=== PATIENT | female | born 1950 | race Caucasian/White ===

== ENCOUNTER 2019-05-01 05:26 | Outpatient (CLI) | payer MEDICARE, OTHER, SELFPAY ==
[2019-05-01 05:56] LABS: Basophils % 0.5 %; Eosinophils # 0.1 10^3/uL (0.0-0.8); Eosinophils % 1.7 %; Hematocrit 29.5 % (37.0-47.0); Hemoglobin 8.8 g/dL (11.5-15.3); Lymphocytes # 0.6 10^3/uL (0.8-4.8); Lymphocytes % 13.2 %; Mean Corpuscular HGB Conc 29.8 g/dL (30.0-36.0); Mean Corpuscular Volume 77.2 fL (81-99); Mean Platelet Volume 11.4 fL (7.4-10.4); Monocytes # 0.4 10^3/uL (0.2-0.9); Monocytes % 10.6 %; Neutrophils # 3.1 10^3/uL (1.8-7.7); Neutrophils % 73.8 %; Nucleated Red Blood Cells % 0 %; Platelet Count 142 10^3/cmm (130-400); Red Blood Count 3.82 10^6/uL (4.1-5.3); Red Cell Distribution Width 18.3 % (12.1-15.1); White Blood Count 4.2 10^3/uL (4.0-10.0)
[2019-05-01 06:04] LABS: Estmated Average Glucose 151; Hemoglobin A1C 6.9 % (4.0-6.0)
[2019-05-01 06:09] LABS: Alanine Aminotransferase 56 U/L (0-33); Albumin Level 4.2 g/dL (3.5-5.2); Alkaline Phosphatase 140 IU/L (35-105); Anion Gap 19.3 (5-19); Aspartate Amino Transferase 59 U/L (0-32); Blood Urea Nitrogen 34 mg/dL (8-23); Calcium 10.3 mg/Dl (8.8-10.2); Carbon Dioxide 22 mmol/L (22-29); Chloride 101 mmol/L (98-107); Chol HDL Ratio 3.57 mg/dL (0.0-4.40); Cholesterol 214 mg/dL (0-200); Globulin 3.9 g/dL (1.3-4.6); Glomerular Filtration Rate 44.9 mL/min (90-130); Glucose 157 mg/dL (74-106); HDL Cholesterol 60 mg/dL (60-100); LDL Cholesterol Calculated 125 mg/dL (50-129); Potassium 4.3 mmol/L (3.5-5.1); Sodium 138 mmol/L (136-145); Total Bilirubin 0.4 mg/dL (0.15-1.2); Total Protein 8.1 g/dL (6.6-8.7); Triglycerides 145 mg/dL (0-150); VLDL Cholestrol Calculation 29 mg/dL (0-30)
[2019-05-01 06:17] LABS: Creatinine Urine, Random 104 mg/dL (28-217); Microalbum Creatinine Ratio Ur 38 mg/dL (0-20); Microalbumin Random Urine 4 ug/dL (0-20)
== END 2019-05-01 05:27 | disposition home or self-care (01) ==
LOC: LAB 05:30
PROVIDERS: Family Provider Family Medicine; Visit Provider Family Medicine
DX: E11.9 Type 2 diabetes mellitus without complications (principal)
CPT/HCPCS: 80053; 80061; 82044; 83036; 85025

== ENCOUNTER 2019-06-13 13:50 | Outpatient (CLI) | payer MEDICARE, OTHER, SELFPAY ==
--- NOTE | 2019-06-13 13:56 | XR_ITS ---
WS: [id number] DEXA (DUAL ENERGY X-RAY ABSORPTIOMETRY) Bone mineral density was performed using a [email or web address] machine. HISTORY: POST MENOPAUSAL COMPARISON: None available. Left forearm BMD: 0.884 g/cm2. T score: 0.1 Z score: 1.6 Total hip BMD: Left: 1.146 g/cm2. T score: 1.1 Z score: 1.9 Right: 1.154 g/cm2. T score: 1.2 Z score: 2.0 10 year probability of a major osteoporotic fracture is 10%. XR/XR DEXA axial skeleton* 42311 IMPRESSION: NORMAL BONE MINERAL DENSITY based upon the WHO classification for females.
== END 2019-06-13 13:51 | disposition home or self-care (01) ==
LOC: RADWPI 13:56
PROVIDERS: Family Provider Family Medicine; PCP Family Medicine; Visit Provider Family Medicine
DX: Z78.0 Asymptomatic menopausal state (principal)
CPT/HCPCS: 77080

== ENCOUNTER 2019-10-31 07:18 | Outpatient (CLI) | payer MEDICARE, OTHER, SELFPAY ==
--- NOTE | 2019-10-31 07:24 | US_ITS ---
WS: [id number] ULTRASOUND ABDOMEN LIMITED CLINICAL INFORMATION: NONALCOHOLIC STEATOHEPATITIS COMPARISON: None. FINDINGS: Hepatomegaly with cirrhotic liver Craniocaudal length: 19.9 cm. Echogenicity: Coarse fatty Surface nodularity: Present Mass (size and location): None. Bile ducts Intrahepatic ducts: Normal. Common bile duct diameter: 0.3 cm. Gallbladder Removed Pancreas Normal as visualized. Right kidney: Normal. Hydronephrosis: None. Size: 11.2 cm x 4.6 cm x 6.1 cm. Abdominal aorta and IVC Visualized portions are normal. Ascites: None. US/US abdomen limited 11130 IMPRESSION: 1. Hepatomegaly with diffuse fatty infiltration. Cirrhotic contour to the live r. Recommend correlation with liver function tests. 2. Gallbladder has been removed. 3. Normal common bile duct. 4. Right kidney not well visualized.
== END 2019-10-31 07:19 | disposition home or self-care (01) ==
PROVIDERS: PCP Nurse Practitioner Family; Visit Provider Internal Medicine Gastroenterology
DX: K75.81 Nonalcoholic steatohepatitis (NASH) (principal); K74.69 Other cirrhosis of liver
CPT/HCPCS: 76705

== ENCOUNTER 2020-03-20 10:58 | Outpatient (CLI) | payer MEDICARE, OTHER, SELFPAY ==
--- NOTE | 2020-03-20 | USCV_ITS ---
Caitlin Palacios Age: 69 Gender: F : 1950 Exam Date: 03/20/2020 11:39 Ordering Phys: Taylor Pena MD Technologist: Yadira Ward [place] [facility] [place]: [place] pain Rhythm: Sinus Patient History: Cardiac Medications: amlodipine, Medications in past 24 hours: amlidipine Contrast: Stress Results Protocol: Shmuel Total dose(mL): Exercise Duration (min:sec): 24:57 METS: Resting HR: 76 Resting BP: 180 / 90 Peak HR: 133 Peak BP: 200 / 82 Max Predicted HR: 153 87 % Max Predicted HR Target HR: 130 Double Product: 18853 Stress Summary: The hemodynamic response to stress was normal. BP Response: Normal Reason for Termination: The patients target heart rate was achieved Cardiac Symptoms: None ECG Analysis Resting ECG: Stress ECG: Arrhythmia: MEASUREMENTS (Male/Female) Normal Values FINDINGS 1. At the baseline, the patient's blood pressure was 180/90 mm Hg with a heart rate of 76 beats per minute. The chest examination revealed normal breath sounds with no rales or rhonchi. The CVS examination revealed normal heart sounds with no S3 or S4. 2. The Dobutamine was infused over 24 minutes and 57 seconds. The patient was given a total of 0.5 mg of IV Atropine for better heart rate response. The maximum heart rate obtained was 133 beats per minute. The patient attained 87 % of the maximum predicted heart rate. The blood pressure at the end of the infusion was 200/82 mmHg. Patient did not have any chest pain or any significant electrocardiogram changes with the Dobutamine infusion. The physical examination remained unchanged. No arrhythmias were seen on the monitor. 3. At the baseline, the patient's echocardiogram revealed normal cardiac chamber sizes with normal LV ejection fraction of 60 %. Segmental wall motion analysis revealed no abnormalities. There were no intracardiac masses. No significant pericardial effusion. Aortic root appears to be upper limits of normal size. 4. With the low and the peak Dobutamine infusion, there was good augmentation of all the segments with no Dobutamine-induced wall motion abnormalities. 5. During the recovery phase, the patient did not have any symptoms or any EKG changes. The blood pressure at the end of the recovery phase was 178/74 with a heart rate of 80 beats per minute. 6. The echocardiogram during the recovery phase also did not reveal any new changes. CONCLUSIONS 1. Normal electrocardiogram response to Dobutamine infusion. 2. Normal echocardiographic response to Dobutamine infusion. 3. No Dobutamine-induced chest pain or cardiac arrhythmia. 4. Clinical correlation is recommended. Talyor Pena MD Edited by: [employer] (Electronically Signed) Final Date: 25 March 2020 06:19 Amended: 25 March 2020 07:23 C
[2020-03-20 11:02] VITALS: BMI 31.6
--- NOTE | 2020-03-20 11:23 | ECG_ITS ---
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 Interpretive Statements NAME OF STUDY: DOBUTAMINE STRESS ECHOCARDIOGRAM INDICATION: Chest Pain PROCEDURE: At the baseline, the blood pressure was 180/90 mmHg with a heart rate of 76 bpm and oxygen saturation 97%. The electrocardiogram showed normal sinus rhythm, normal axis with nonspecific ST changes. Poor baseline with artifact. The dobutamine was infused over a period of 24 minutes 57 seconds to a maximum dose of 80 mcg/kg/min. The maximum heart rate obtained was 133 (86% of the maximum predicted heart rate). The blood pressure at that time was 156/61 mmHg and oxygen saturation 96%. The patient did not have any chest pain or any significant electrocardiogram changes with the dobutamine infusion. The physical examination remained unchanged. No arrhythmias were seen on the monitor. The study was terminated due to protocol completion and achievement of maximum heart rate. During the recovery phase, the patient did not have any specific symptoms. The blood pressure at the end of the recovery phase was 178/74 mmHg, oxygen saturation 96% with a heart rate of 80 beats per minute. Patient received atropine 0.1 mg IV push during the study. CONCLUSION: 1. Normal EKG response to dobutamine infusion. 2. Normal blood pressure and heart rate response. 3. Functional status could not be assessed due to pharmacological protocol. 4. Echocardiographic portion of the study pending; see separate report. Electronically Signed On 03-25-2020 16:58:43 CONSTRUCTION CARPENTERS HELPER by Taylor Pena M.D. [id number]
[2020-03-20] MEDS: atropine 0.1 mg/mL Syr 10 mL 0.5 MG IVP (12:50)
[2020-03-20] MEDS: DOBUTtamine 200 MG in sodium chloride 0.9% 34 ML 103.4 MG IV (12:51)
[2020-03-20 12:54] VITALS: BP 178/74; PULSE 80
== END 2020-03-20 10:59 | disposition home or self-care (01) ==
LOC: CDL 10:59
PROVIDERS: PCP Nurse Practitioner Family; Visit Provider Internal Medicine Cardiovascular Disease
DX: R07.89 Other chest pain (principal)
CPT/HCPCS: 93017; 93350; 93352; J0461; J1250; J7050

== ENCOUNTER 2020-05-07 06:31 | Outpatient (CLI) | payer MEDICARE, OTHER, SELFPAY ==
--- NOTE | 2020-05-07 | US_ITS ---
WS: [id number] RIGHT UPPER QUADRANT ULTRASOUND HISTORY: HCC SCREEN, CIRRHOSIS OF THE LIVER COMPARISON: 10/31/2019 Liver: 12.7 cm in length. Liver is normal size. Surface of the liver is irregular with a moderate coa rsened echotexture. No bile duct dilatation. No mass. Gallbladder: Status post cholecystectomy. CBD: 0.3 cm Pancreas: Normal size and echogenicity. Right kidney: 12.4 cm in length. Normal size kidney with mild diffuse cortical thinning. No obstructi on or mass. Aorta and IVC: Unremarkable abdominal aorta and IVC. No ascites. US/US abdomen limited 40138 IMPRESSION: 1. Moderately severe changes of cirrhosis. No bile duct dilatation or mass. 2. Prior cholecystectomy. 3. Mild thinning of the RIGHT renal cortex.
== END 2020-05-07 06:32 | disposition home or self-care (01) ==
LOC: RAD 06:34
PROVIDERS: PCP Nurse Practitioner Family; Visit Provider Internal Medicine Gastroenterology
DX: K74.69 Other cirrhosis of liver (principal); Z90.49 Acquired absence of other specified parts of digestive tract
CPT/HCPCS: 76705

== ENCOUNTER 2020-06-14 07:28 | Outpatient (CLI) | payer MEDICARE, OTHER, SELFPAY ==
--- NOTE | 2020-06-14 07:41 | US_ITS ---
WS: [id number] ULTRASOUND ABDOMEN LIMITED CLINICAL INFORMATION: THROMBOCYTOPENIC DISORDER/HX OF CIRRHOSIS COMPARISON: Ultrasound May 07, 2020 FINDINGS: Spleen Splenomegaly: Enlarged Spleen measures 12.9 x 6.2 CM. No hydronephrosis in the left kidney. Left kidney measures 12.6 x 2.7 x 4.5 cm. Renal cortical atrophy measuring 0.7 CM. US/US abdomen limited 19864 IMPRESSION: 1. Splenomegaly with accessory splenule. Spleen measures 13.0 cm [id number]. 2. No hydronephrosis in the left kidney. Renal cortical atrophy.
== END 2020-06-14 07:29 | disposition home or self-care (01) ==
LOC: RAD 07:33
PROVIDERS: PCP Nurse Practitioner Family; Visit Provider Nurse Practitioner Family
DX: D69.6 Thrombocytopenia, unspecified (principal); R16.1 Splenomegaly, not elsewhere classified
CPT/HCPCS: 76705

== ENCOUNTER 2021-08-27 06:00 | Outpatient (RCR) | payer MEDICARE, OTHER, SELFPAY | END 2021-09-16 23:59 | disposition home or self-care (01) | LOC: WPT 06:00 | PROVIDERS: PCP Nurse Practitioner Family; Referring Provider Nurse Practitioner Family; Visit Provider Nurse Practitioner Family | DX: M54.12 Radiculopathy, cervical region (principal) | CPT/HCPCS: 97110; 97140; 97161 ==

== ENCOUNTER 2021-09-17 06:00 | Outpatient (RCR) | payer MEDICARE, OTHER, SELFPAY | END 2021-10-16 23:59 | disposition home or self-care (01) | LOC: WPT 06:00 | PROVIDERS: PCP Nurse Practitioner Family; Referring Provider Nurse Practitioner Family; Visit Provider Nurse Practitioner Family | DX: M54.12 Radiculopathy, cervical region (principal) | CPT/HCPCS: 97110 ==

== ENCOUNTER → 2021-12-02 13:56 | Outpatient (BNVA) | payer MEDICARE, OTHER, SELFPAY | PROVIDERS: PCP Registered Nurse; Referring Provider Dermatology; Visit Provider Podiatrist Foot & Ankle Surgery | DX: M79.672 Pain in left foot (principal); M77.32 Calcaneal spur, left foot; R07.89 Other chest pain; I10 Essential (primary) hypertension; E11.9 Type 2 diabetes mellitus without complications; E78.5 Hyperlipidemia, unspecified; E03.9 Hypothyroidism, unspecified | CPT/HCPCS: 73630; 99203; 99204; 99214 ==

== ENCOUNTER → 2022-02-02 15:07 | Outpatient (BNVA) | payer MEDICARE, OTHER, SELFPAY | PROVIDERS: PCP Registered Nurse; Visit Provider Podiatrist Foot & Ankle Surgery | DX: M92.62 Juvenile osteochondrosis of tarsus, left ankle (principal); M76.72 Peroneal tendinitis, left leg | CPT/HCPCS: 99214 ==

== ENCOUNTER → 2022-05-20 13:27 | Outpatient (BNVA) | payer MEDICARE, OTHER, SELFPAY | PROVIDERS: PCP Nurse Practitioner Family; Visit Provider Internal Medicine Cardiovascular Disease | DX: M79.89 Other specified soft tissue disorders (principal); I10 Essential (primary) hypertension; E78.5 Hyperlipidemia, unspecified; E11.9 Type 2 diabetes mellitus without complications; Z79.4 Long term (current) use of insulin; E03.9 Hypothyroidism, unspecified; K74.60 Unspecified cirrhosis of liver; K27.9 Peptic ulcer, site unspecified, unspecified as acute or chronic, without hemorrhage or perforation; Z79.01 Long term (current) use of anticoagulants | CPT/HCPCS: 99214; Q3014 ==

== ENCOUNTER 2022-06-06 10:29 | Outpatient (CLI) | payer MEDICARE, OTHER, SELFPAY ==
[2022-06-06 10:42] LABS: Occult Blood Stool Negative (Negative)
== END 2022-06-06 10:30 | disposition home or self-care (01) ==
PROVIDERS: Internal Medicine Medical Oncology; PCP Nurse Practitioner Family; Visit Provider Orthopaedic Surgery Orthopaedic Surgery of the Spine
DX: D50.9 Iron deficiency anemia, unspecified (principal)
CPT/HCPCS: 82270

== ENCOUNTER 2022-06-12 09:30 | Oncology outpatient (recurring) (ONCR) | payer MEDICARE, OTHER, SELFPAY ==
[2022-06-08] VITALS (9 sets, daily range): BP systolic 125–144; BP diastolic 52–68; PULSE 50–78; RESP 16; TEMP 36.5–36.9; O2SAT 96–99
[2022-06-08 09:13] LABS: Basophils % 0.4 %; Eosinophils # 0.1 10^3/uL (0.0-0.8); Eosinophils % 1.8 %; Hematocrit 24.7 % (37.0-47.0); Hemoglobin 7.3 g/dL (11.5-15.3); Lymphocytes # 0.4 10^3/uL (0.8-4.8); Lymphocytes % 15.1 %; Mean Corpuscular HGB Conc 29.6 g/dL (30.0-36.0); Mean Corpuscular Hemoglobin 25.7 pg (28.0-34.0); Mean Platelet Volume 13.8 fL (7.4-10.4); Monocytes # 0.3 10^3/uL (0.2-0.9); Monocytes % 11.1 %; Neutrophils # 1.94 10^3/uL (1.8-7.7); Neutrophils % 71.6 %; Nucleated Red Blood Cells % 0 %; Platelet Count 91 10^3/cmm (130-400); Red Blood Count 2.84 10^6/uL (4.1-5.3); Red Cell Distribution Width 17.5 % (12.1-15.1); White Blood Count 2.7 10^3/uL (4.0-10.0)
[2022-06-08] MEDS: diphenhydrAMINE 25 mg Capsule PO (11:52)
[2022-06-08] MEDS: acetaminophen 325 mg Tablet 650 MG PO (11:52)
[2022-06-08] MEDS: sodium chloride 0.9% 250 mL Bag IV (11:53)
[2022-06-12] MEDS: sodium chloride 0.9% 250 ML 75 ML IV (09:41)
[2022-06-12] MEDS: ferric carboxy (IVPB) 750 MG in sodium chloride 0.9% (100 ml) 100 ML 345 MG IV (09:42)
[2022-06-12 10:31] VITALS: BP 119/72; PULSE 59; RESP 14; TEMP 36.2; O2SAT 98
== END 2022-06-16 23:59 | disposition home or self-care (01) ==
PROVIDERS: PCP Nurse Practitioner Family; Visit Provider Internal Medicine Medical Oncology
DX: D50.9 Iron deficiency anemia, unspecified (principal); Z79.899 Other long term (current) drug therapy
CPT/HCPCS: 36415; 36430; 85025; 86850; 86900; 86920; 96365; 99204; 99205; J1439; J7050; P9016

== ENCOUNTER 2022-06-19 08:57 | Oncology outpatient (recurring) (ONCR) | payer MEDICARE, OTHER, SELFPAY ==
[2022-06-19] MEDS: ferric carboxy (IVPB) 750 MG in sodium chloride 0.9% (100 ml) 100 ML 345 MG IV (09:27)
[2022-06-19] MEDS: sodium chloride 0.9% 250 ML 75 ML IV (09:27)
[2022-06-19 10:14] VITALS: BP 124/73; PULSE 55; RESP 16; TEMP 36.2; O2SAT 96
== END 2022-07-17 23:59 | disposition home or self-care (01) ==
LOC: ONCMED 08:57
PROVIDERS: PCP Nurse Practitioner Family; Visit Provider Internal Medicine Medical Oncology
DX: D50.9 Iron deficiency anemia, unspecified
CPT/HCPCS: 96365; 96416; J1439; J7050

== ENCOUNTER 2022-07-10 13:02 | Outpatient (CLI) | payer MEDICARE, OTHER, SELFPAY ==
--- NOTE | 2022-07-10 13:45 | USCV_ITS ---
Caitlin Palacios Age: 71 Gender: F : 1950 Exam Date: 07/10/2022 13:38 Ordering Phys: Taylor Pena MD ([email or web address]) Technologist: Exam Location: [facility] [place] Indication: chest pain BP: 124 / 72 HR: 62 Rhythm: Sinus Technical Quality: Adequate MEASUREMENTS (Male / Female) Normal Values 2D ECHO LV Diastolic Diameter PLAX 4.2 cm 4.2 - 5.9 / 3.9 - 5.3 cm LV Systolic Diameter PLAX 2.7 cm IVS Diastolic Thickness 1.1 cm 0.6 - 1.0 / 0.6 - 0.9 cm IVS Systolic Thickness 1.3 cm LVPW Diastolic Thickness 1.1 cm 0.6 - 1.0 / 0.6 - 0.9 cm LVPW Systolic Thickness 1.7 cm LVOT Diameter 2.1 cm LV Ejection Fraction 2D Teich 64.4 % LV Ejection Fraction MOD 2C 73.1 % LV Ejection Fraction 2C AL 72.4 % LA Diameter 3.7 cm M-MODE Aortic Annulus Diameter 3.0 cm LA Ao Ratio MM 1.4 MV E Point Septal Separation 1.0 cm DOPPLER AV Peak Velocity 186.0 cm/s LVOT Peak Velocity 111.0 cm/s AV Area Cont Eq vti 2.0 cm squared AV Area Cont Eq pk 2.0 cm squared MV Area PHT 5.0 cm squared Mitral E to A Ratio 0.9 MV E' Velocity 48.5 cm/s Mitral E to MV E' Ratio 8.3 Mitral E to LV E' Lateral Ratio 7.3 Mitral E to LV E' Septal Ratio 9.8 TR Peak Velocity 231.3 cm/s TR Peak Gradient 21.4 mmHg TV Peak E Velocity 85.0 cm/s Right Atrial Pressure 3.0 mmHg Pulmonary Artery Systolic Pressu 24.4 mmHg RV Acceleration Time 0.2 s FINDINGS Left Ventricle Left ventricle is normal in size. LV systolic function is normal with EF of 55-60%. No regional wall motion abnormalities are seen. Grade 1 diastolic dysfunction Right Ventricle Normal in size and function Right Atrium Normal in size Left Atrium Normal in size Mitral Valve Structurally normal mitral valve. Trace mitral regurgitation. Aortic Valve Structurally normal aortic valve. No significant stenosis or regurgitation. Tricuspid Valve Mild tricuspid regurgitation. Pulmonary artery systolic pressure is normal Pulmonic Valve Not well visualized Pericardium Normal Aorta Normal in size IVC Appears to be normal CONCLUSIONS LV systolic function is normal with EF of 55-60% Grade 1 diastolic dysfunction Trace mitral regurgitation Mild tricuspid regurgitation Compared to prior echocardiogram from 2016, no significant changes are seen Lavon Pradhan MD (Electronically Signed) Final Date: 23 July 2022 16:28 S
== END 2022-07-10 13:03 | disposition home or self-care (01) ==
LOC: RAD 13:12
PROVIDERS: PCP Nurse Practitioner Family; Visit Provider Internal Medicine Cardiovascular Disease
DX: R07.9 Chest pain, unspecified (principal); I08.1 Rheumatic disorders of both mitral and tricuspid valves
CPT/HCPCS: 93306

== ENCOUNTER → 2022-07-13 12:34 | Outpatient (BNVA) | payer MEDICARE, OTHER, SELFPAY | PROVIDERS: PCP Nurse Practitioner Family; Visit Provider Nurse Practitioner Family | DX: M79.89 Other specified soft tissue disorders (principal); I12.9 Hypertensive chronic kidney disease with stage 1 through stage 4 chronic kidney disease, or unspecified chronic kidney disease; E11.22 Type 2 diabetes mellitus with diabetic chronic kidney disease; N18.9 Chronic kidney disease, unspecified; Z79.4 Long term (current) use of insulin | CPT/HCPCS: 99214 ==

== ENCOUNTER 2022-07-22 12:48 | Oncology outpatient (recurring) (ONCR) | payer MEDICARE, OTHER, SELFPAY ==
[2022-07-22 13:49] LABS: Basophils % 0.6 %; Eosinophils # 0.1 10^3/uL (0.0-0.8); Eosinophils % 2.4 %; Hematocrit 34.4 % (37.0-47.0); Hemoglobin 11.2 g/dL (11.5-15.3); Lymphocytes # 0.5 10^3/uL (0.8-4.8); Lymphocytes % 15.5 %; Mean Corpuscular HGB Conc 32.6 g/dL (30.0-36.0); Mean Corpuscular Hemoglobin 30.5 pg (28.0-34.0); Mean Corpuscular Volume 93.7 fl (81-99); Monocytes # 0.3 10^3/uL (0.2-0.9); Neutrophils # 2.35 10^3/uL (1.8-7.7); Neutrophils % 71.2 %; Nucleated Red Blood Cells % 0 %; Platelet Count 73 10^3/cmm (130-400); Red Blood Count 3.67 10^6/uL (4.1-5.3); Red Cell Distribution Width 20.8 % (12.1-15.1); White Blood Count 3.3 10^3/uL (4.0-10.0)
[2022-07-22 13:55] LABS: Alanine Aminotransferase 65 U/L (0-33); Albumin Level 3.9 g/dL (3.5-5.2); Alkaline Phosphatase 168 U/L (35-105); Anion Gap 12.8 (5-19); Aspartate Amino Transferase 55 U/L (0-32); Blood Urea Nitrogen 35 mg/dL (8-23); Calcium 8.7 mg/dL (8.5-10.5); Carbon Dioxide 26 mmol/L (22-29); Chloride 105 mmol/L (98-107); Ferritin 308 ng/mL (15-150); Globulin 2.8 g/dL (1.3-4.6); Glomerular Filtration Rate 40.6 mL/min (90-130); Glucose 281 mg/dL (65-115); Iron 58 ug/dL (37-145); Osmolality Calculated 308 mOsm/kg (285-295); Percent Saturation 20.4 % (20-50); Potassium 3.8 mmol/L (3.5-5.1); Sodium 140 mmol/L (136-145); Total Bilirubin 0.6 mg/dL (0.15-1.2); Total Iron Binding Capacity 283 mcg/dl; Total Protein 6.7 g/dL (6.6-8.7); Unsaturated Iron Binding 225 ug/dL (112-347)
[2022-07-22 14:44] LABS: Mean Platelet Volume 11.3 fL (7.4-10.4); Slide Review Slide Review Perform
== END 2022-08-16 23:59 | disposition home or self-care (01) ==
PROVIDERS: Nurse Practitioner; PCP Nurse Practitioner Family; Visit Provider Internal Medicine Medical Oncology
DX: D50.9 Iron deficiency anemia, unspecified (principal); D61.818 Other pancytopenia; K74.60 Unspecified cirrhosis of liver; I81 Portal vein thrombosis; Z79.01 Long term (current) use of anticoagulants; Z79.899 Other long term (current) drug therapy; M79.7 Fibromyalgia; Z79.891 Long term (current) use of opiate analgesic
CPT/HCPCS: 36415; 80053; 82728; 83540; 83550; 85025; 99214

== ENCOUNTER 2022-09-10 15:00 | Oncology outpatient (recurring) (ONCR) | payer MEDICARE, OTHER, SELFPAY ==
[2022-08-24 11:56] LABS: Basophils % 0.6 %; Eosinophils # 0.1 10^3/uL (0.0-0.8); Eosinophils % 1.6 %; Hematocrit 33.3 % (37.0-47.0); Hemoglobin 10.5 g/dL (11.5-15.3); Lymphocytes # 0.5 10^3/uL (0.8-4.8); Lymphocytes % 16.5 %; Mean Corpuscular HGB Conc 31.5 g/dL (30.0-36.0); Mean Corpuscular Hemoglobin 29.8 pg (28.0-34.0); Mean Corpuscular Volume 94.6 fl (81-99); Monocytes # 0.3 10^3/uL (0.2-0.9); Monocytes % 10.2 %; Neutrophils # 2.23 10^3/uL (1.8-7.7); Neutrophils % 70.8 %; Nucleated Red Blood Cells % 0 %; Platelet Count 69 10^3/cmm (130-400); Red Blood Count 3.52 10^6/uL (4.1-5.3); Red Cell Distribution Width 16.2 % (12.1-15.1); White Blood Count 3.2 10^3/uL (4.0-10.0)
[2022-08-24 12:13] LABS: Alanine Aminotransferase 42 U/L (0-33); Albumin Level 3.7 g/dL (3.5-5.2); Alkaline Phosphatase 156 U/L (35-105); Anion Gap 16.4 (5-19); Aspartate Amino Transferase 47 U/L (0-32); Blood Urea Nitrogen 34 mg/dL (8-23); Calcium 8.7 mg/dL (8.5-10.5); Carbon Dioxide 25 mmol/L (22-29); Chloride 102 mmol/L (98-107); Ferritin 74 ng/mL (15-150); Glomerular Filtration Rate 34.3 mL/min (90-130); Glucose 168 mg/dL (65-115); Iron 45 ug/dL (37-145); Osmolality Calculated 301 mOsm/kg (285-295); Percent Saturation 15.6 % (20-50); Potassium 3.4 mmol/L (3.5-5.1); Sodium 140 mmol/L (136-145); Total Bilirubin 0.5 mg/dL (0.15-1.2); Total Iron Binding Capacity 288 mcg/dl; Total Protein 6.7 g/dL (6.6-8.7); Unsaturated Iron Binding 243 ug/dL (112-347)
[2022-09-01 13:30] VITALS: BP 97/55; PULSE 60; RESP 18; TEMP 36.4; O2SAT 97
[2022-09-01] MEDS: ferric carboxy (IVPB) 750 MG in sodium chloride 0.9% (100 ml) 100 ML 345 MG IV (13:33)
[2022-09-01 14:18] VITALS: BP 151/59; PULSE 61; RESP 18; TEMP 36.7; O2SAT 97
[2022-09-10 14:50] VITALS: BP 140/68; PULSE 55; RESP 16; TEMP 35.8; O2SAT 100
[2022-09-10] MEDS: ferric carboxy (IVPB) 750 MG in sodium chloride 0.9% (100 ml) 100 ML 345 MG IV (15:18)
== END 2022-09-16 23:59 | disposition home or self-care (01) ==
PROVIDERS: PCP Nurse Practitioner Family; Visit Provider Internal Medicine Medical Oncology
DX: D50.9 Iron deficiency anemia, unspecified
CPT/HCPCS: 36415; 80053; 82728; 83540; 83550; 85025; 96365; 99214; J1439

== ENCOUNTER 2022-11-23 11:08 | Oncology outpatient (recurring) (ONCR) | payer MEDICARE, OTHER, SELFPAY ==
[2022-11-23 11:19] VITALS: BP 131/68; PULSE 72; RESP 18; TEMP 36.6; O2SAT 93
[2022-11-23 11:40] LABS: Basophils % 0.4 %; Eosinophils # 0.1 10^3/uL (0.0-0.8); Eosinophils % 2.2 %; Hematocrit 34.6 % (37.0-47.0); Hemoglobin 11.5 g/dL (11.5-15.3); Lymphocytes # 0.4 10^3/uL (0.8-4.8); Lymphocytes % 14.3 %; Mean Corpuscular HGB Conc 33.2 g/dL (30.0-36.0); Mean Corpuscular Hemoglobin 31.9 pg (28.0-34.0); Mean Corpuscular Volume 95.8 fl (81-99); Mean Platelet Volume 13.2 fL (7.4-10.4); Monocytes # 0.3 10^3/uL (0.2-0.9); Neutrophils # 2.07 10^3/uL (1.8-7.7); Neutrophils % 74.1 %; Nucleated Red Blood Cells % 0 %; Platelet Count 75 10^3/cmm (130-400); Red Blood Count 3.61 10^6/uL (4.1-5.3); Red Cell Distribution Width 14.4 % (12.1-15.1); White Blood Count 2.8 10^3/uL (4.0-10.0)
[2022-11-23 12:10] LABS: Alanine Aminotransferase 47 U/L (0-33); Albumin Level 3.8 g/dL (3.5-5.2); Alkaline Phosphatase 177 U/L (35-105); Aspartate Amino Transferase 51 U/L (0-32); Blood Urea Nitrogen 37 mg/dL (8-23); Carbon Dioxide 23 mmol/L (22-29); Chloride 105 mmol/L (98-107); Ferritin 138 ng/mL (15-150); Globulin 3.1 g/dL (1.3-4.6); Glomerular Filtration Rate 37.2 mL/min (90-130); Glucose 294 mg/dL (65-115); Iron 60 ug/dL (37-145); Osmolality Calculated 312 mOsm/kg (285-295); Sodium 141 mmol/L (136-145); Total Bilirubin 0.5 mg/dL (0.15-1.2); Total Iron Binding Capacity 300 mcg/dl; Total Protein 6.9 g/dL (6.6-8.7); Unsaturated Iron Binding 240 ug/dL (112-347)
[2022-11-23 12:11] LABS: Anion Gap 16.9 (5-19); Potassium 3.9 mmol/L (3.5-5.1)
== END 2022-12-17 23:59 | disposition home or self-care (01) ==
PROVIDERS: PCP Nurse Practitioner Family; Visit Provider Internal Medicine Medical Oncology
DX: D61.818 Other pancytopenia (principal); D50.9 Iron deficiency anemia, unspecified; K74.60 Unspecified cirrhosis of liver; I81 Portal vein thrombosis; Z79.01 Long term (current) use of anticoagulants; Z79.891 Long term (current) use of opiate analgesic; Z79.899 Other long term (current) drug therapy
CPT/HCPCS: 80053; 82728; 83540; 83550; 85025; 99214

== ENCOUNTER → 2023-01-12 14:31 | Outpatient (BNVA) | payer MEDICARE, OTHER, SELFPAY | PROVIDERS: PCP Nurse Practitioner Family; Referring Provider Nurse Practitioner Family; Visit Provider Thoracic Surgery (Cardiothoracic Vascular Surgery) | DX: M79.89 Other specified soft tissue disorders (principal) | CPT/HCPCS: 99203 ==

== ENCOUNTER → 2023-01-18 10:43 | Outpatient (BNVA) | payer MEDICARE, OTHER, SELFPAY | PROVIDERS: PCP Nurse Practitioner Family; Visit Provider Internal Medicine Cardiovascular Disease | DX: M79.89 Other specified soft tissue disorders (principal); I12.9 Hypertensive chronic kidney disease with stage 1 through stage 4 chronic kidney disease, or unspecified chronic kidney disease; E11.22 Type 2 diabetes mellitus with diabetic chronic kidney disease; N18.9 Chronic kidney disease, unspecified; Z79.4 Long term (current) use of insulin; E78.5 Hyperlipidemia, unspecified; E03.9 Hypothyroidism, unspecified; K74.60 Unspecified cirrhosis of liver; K27.9 Peptic ulcer, site unspecified, unspecified as acute or chronic, without hemorrhage or perforation | CPT/HCPCS: 99214 ==

== ENCOUNTER 2023-01-26 12:06 | Outpatient (CLI) | payer MEDICARE, OTHER, SELFPAY ==
--- NOTE | 2023-01-26 13:00 | USCV_ITS ---
Caitlin Palacios Age: 72 Gender: F : 1950 Exam Date: 01/26/2023 12:41 Ordering Phys: Pako Farfan MD (Andy) ([email or web address]/[facility] [place]) Technologist: ERNIE [place] [facility] [place]ication: HISTORY: Lower extremity swelling. Lower extremity pain. Lower extremity edema. PROCEDURES: Venous duplex imaging was performed in bilateral lower extremities. The following venous structures were evaluated: common femoral vein, profunda vein, proximal portion of the greater saphenous vein, superficial femoral vein, and the popliteal vein. Serial compression, augmentation maneuvers, and spectral Doppler flow evaluation were performed. An evaluation for venous insufficiency was also completed. FINDINGS: The veins were found to be easily compressible with spontaneous blood flow. Non pulsatile flow pattern. The popliteal vein on the right side was found to have a reflux time of 3.24 seconds. Venous reflux of 3.04 seconds was noted at the mid greater saphenous vein segment on the right side. The venous diameter of 0.26 cm and at a depth of 2.13 cm. No significant venous reflux were noted on the left side CONCLUSIONS 1. No evidence of DVT in the above-mentioned identifiable veins 2. Significant venous reflux of greater than 1000 ms was noted at the popliteal vein on the right side. 3. Significant venous reflux of greater than 500 ms was noted at the mid greater saphenous vein segment on the right side. This venous segment was relatively of small caliber, measuring 0.26 cm in diameter. 4. No significant venous reflux were noted on the left side. Dr Michelle Reid MD [facility] (Electronically Signed) Final Date: 26 January 2023 19:39 S
== END 2023-01-26 12:07 | disposition home or self-care (01) ==
LOC: RAD 12:07
PROVIDERS: PCP Nurse Practitioner Family; Visit Provider Thoracic Surgery (Cardiothoracic Vascular Surgery)
DX: M79.89 Other specified soft tissue disorders (principal); M79.605 Pain in left leg; M79.604 Pain in right leg; R60.0 Localized edema; I87.2 Venous insufficiency (chronic) (peripheral)
CPT/HCPCS: 93970

== ENCOUNTER 2023-03-05 11:44 | Outpatient (CLI) | payer MEDICARE, OTHER, SELFPAY ==
--- NOTE | 2023-03-05 11:52 | CT_ITS ---
WS: [id number] CT ABDOMEN WITH CONTRAST HISTORY: CIRRHOSIS,NONALCOHOLIC Contiguous single phase 5 mm axial imaging performed to the abdomen. Oral contrast has not been provi ded. Coronal and sagittal reformats are submitted. All CT scans at [facility] use at least on e of these dose optimization techniques: automated exposure control; mA and/or kV adjustment per kira ent size (includes targeted exams where dose is matched to clinical indication); or iterative reconst ruction. IV CONTRAST: Omnipaque 350; 100 mL IV. Oral contrast: No DLP: 469.06 mGy.cm COMPARISON: 03/04/2022 Lower thorax: Lung bases are clear. Heart is normal size. Small hiatal hernia. Liver/biliary system: LEFT lobe of the liver is enlarged in comparison to the RIGHT lobe consistent w ith cirrhosis. Surface of the liver is lobulated. No mass is identified. Portal vein thrombosis noted on the study of 03/04/2022 has resolved. Gallbladder: Prior cholecystectomy. Pancreas: Normal size pancreas and pancreatic duct. No adjacent inflammation. Spleen: Mild enlargement of the spleen at 13.8 cm in length. Adrenal glands: Normal. Right kidney: Mild diffuse cortical atrophy. No obstruction. Left kidney: Mild diffuse cortical atrophy with no obstruction. Aorta: Mild atherosclerosis aorta. Lymphadenopathy: No significant adenopathy. Free fluid: None. GI tract: High density foreign body measuring 13 x 5 mm in the RIGHT colon. Abdominal wall: Unremarkable abdominal wall. No hernia. Visualized osseous structures: Prior posterior lumbar fusion. IMPRESSION: 1. Cirrhosis with portal venous hypertension is unchanged. 2. Previously described portal vein thrombosis has resolved. 3. Prior cholecystectomy. 4. No adenopathy. 5. High density foreign body in the RIGHT colon measures 13 x 5 mm.
[2023-03-05] MEDS: iohexol 350 mg/mL 500 mL Btl (per mL) IV (11:59)
== END 2023-03-05 11:45 | disposition home or self-care (01) ==
LOC: RAD 11:44
PROVIDERS: PCP Nurse Practitioner Family; Visit Provider Internal Medicine Gastroenterology
DX: K74.60 Unspecified cirrhosis of liver (principal); K76.6 Portal hypertension; T18.4XXA Foreign body in colon, initial encounter; X58.XXXA Exposure to other specified factors, initial encounter; Z90.49 Acquired absence of other specified parts of digestive tract
CPT/HCPCS: 74160; Q9967

== ENCOUNTER 2023-03-15 14:30 | Oncology outpatient (recurring) (ONCR) | payer MEDICARE, OTHER, SELFPAY ==
[2023-03-02 07:58] VITALS: BP 140/75; PULSE 66; RESP 16; TEMP 525.6; TEMP 978.1; O2SAT 97
[2023-03-02 08:14] LABS: Basophils % 0.8 %; Eosinophils # 0.1 10^3/uL (0.0-0.8); Hematocrit 33.9 % (36-47); Lymphocytes # 0.3 10^3/uL (0.8-4.8); Lymphocytes % 13.1 %; Mean Corpuscular HGB Conc 31.6 g/dL (30-55); Mean Corpuscular Hemoglobin 28.2 pg (27-33); Mean Corpuscular Volume 89.4 fl (85-98); Mean Platelet Volume 12.3 fL (7.4-10.4); Monocytes # 0.3 10^3/uL (0.2-0.9); Monocytes % 12.7 %; Neutrophils # 1.73 10^3/uL (1.8-7.7); Nucleated Red Blood Cells % 0 %; Platelet Count 76 10^3/cmm (157-399); Red Blood Count 3.79 10^6/uL (3.85-5.65); Red Cell Distribution Width 15.2 % (12.1-15.1); White Blood Count 2.44 10^3/uL (3.29-11.43)
[2023-03-02 08:35] LABS: Alanine Aminotransferase 56 U/L (0-33); Alkaline Phosphatase 131 U/L (35-105); Anion Gap 15.7 (5-19); Aspartate Amino Transferase 61 U/L (0-32); Blood Urea Nitrogen 36 mg/dL (8-23); Calcium 9.2 mg/dL (8.5-10.5); Carbon Dioxide 25 mmol/L (22-29); Chloride 102 mmol/L (98-107); Ferritin 23 ng/mL (15-150); Globulin 3.1 g/dL (1.3-4.6); Glomerular Filtration Rate 40.5 mL/min (90-130); Glucose 179 mg/dL (65-115); Iron 37 ug/dL (37-145); Osmolality Calculated 301 mOsm/kg (285-295); Percent Saturation 10.6 % (20-50); Potassium 3.7 mmol/L (3.5-5.1); Sodium 139 mmol/L (136-145); Total Bilirubin 0.6 mg/dL (0.15-1.2); Total Iron Binding Capacity 346 mcg/dl; Total Protein 7.1 g/dL (6.6-8.7); Unsaturated Iron Binding 309 ug/dL (112-347)
[2023-03-05 10:25] VITALS: BP 136/59; PULSE 73; RESP 17; O2SAT 97
[2023-03-05] MEDS: ferric carboxy (IVPB) 750 MG in sodium chloride 0.9% (100 ml) 100 ML 345 MG IV (11:03)
[2023-03-05 11:35] VITALS: BP 123/65; PULSE 64; RESP 17; TEMP 36.3; O2SAT 98
[2023-03-15 14:15] VITALS: BP 123/72; PULSE 85; RESP 16; TEMP 36.7; O2SAT 96
[2023-03-15] MEDS: ferric carboxy (IVPB) 750 MG in sodium chloride 0.9% (100 ml) 100 ML 345 MG IV (14:48)
== END 2023-03-18 23:59 | disposition home or self-care (01) ==
PROVIDERS: Nurse Practitioner Family; PCP Nurse Practitioner Family; Visit Provider Internal Medicine Medical Oncology
DX: D50.9 Iron deficiency anemia, unspecified
CPT/HCPCS: 80053; 82728; 83540; 83550; 85025; 96365; 99212; 99214; J1439

== ENCOUNTER 2023-04-13 13:33 | Outpatient (CLI) | payer MEDICARE, OTHER, SELFPAY ==
--- NOTE | 2023-04-13 13:44 | XR_ITS ---
WS: [id number] SCREENING DEXA SCAN [employer] CLINICAL INFORMATION: POSTMENOPAUSAL STATE COMPARISON: 2019 FINDINGS: The LEFT forearm bone mineral density measures 0.828. This corresponds to a T score score of -0.5 and Z score of 1.3. Left femoral neck bone mineral density measures 1.049 g/cm2. This corresponds to a T score of 0.3 and Z score of 1.3. Right femoral neck bone mineral density measures 1.039 g/cm2. This corresponds to a T score 0.3of and Z score of 1.2. Mean femoral neck bone mineral density measures 1.044 g/cm2. This corresponds to a T score of 0.3 and Z score of 1.2. IMPRESSION: Normal bone mineralization. Patient's FRAX calculated 10 year probability for major osteoporotic fracture is 11.8% and osteoporot ic hip fracture is 0.8%. Bone mineral density LEFT forearm decreased -6.3% Bone mineral density femurs decreased -9.2%
== END 2023-04-13 13:34 | disposition home or self-care (01) ==
LOC: RAD 13:33
PROVIDERS: PCP Nurse Practitioner Family; Visit Provider Nurse Practitioner Family
DX: Z13.820 Encounter for screening for osteoporosis (principal); Z78.0 Asymptomatic menopausal state
CPT/HCPCS: 77080

== ENCOUNTER 2023-04-21 11:50 | Oncology outpatient (recurring) (ONCR) | payer MEDICARE, OTHER, SELFPAY ==
[2023-04-21 12:45] VITALS: BP 131/73; PULSE 73; RESP 16; O2SAT 94
[2023-04-21 13:05] LABS: Basophils % 0.6 %; Eosinophils # 0.1 10^3/uL (0.0-0.8); Eosinophils % 1.4 %; Hematocrit 35.5 % (36-47); Lymphocytes # 0.4 10^3/uL (0.8-4.8); Lymphocytes % 10.9 %; Mean Corpuscular HGB Conc 33.5 g/dL (30-55); Mean Corpuscular Hemoglobin 31.4 pg (27-33); Mean Corpuscular Volume 93.7 fl (85-98); Mean Platelet Volume 12.9 fL (7.4-10.4); Monocytes # 0.3 10^3/uL (0.2-0.9); Neutrophils # 2.78 10^3/uL (1.8-7.7); Neutrophils % 77.8 %; Nucleated Red Blood Cells % 0 %; Platelet Count 76 10^3/cmm (157-399); Red Blood Count 3.79 10^6/uL (3.85-5.65); Red Cell Distribution Width 18.8 % (12.1-15.1); White Blood Count 3.57 10^3/uL (3.29-11.43)
[2023-04-21 13:25] LABS: Alanine Aminotransferase 53 U/L (0-33); Albumin Level 3.9 g/dL (3.5-5.2); Alkaline Phosphatase 162 U/L (35-105); Anion Gap 16.5 (5-19); Aspartate Amino Transferase 51 U/L (0-32); Blood Urea Nitrogen 32 mg/dL (8-23); Calcium 9.1 mg/dL (8.5-10.5); Carbon Dioxide 25 mmol/L (22-29); Chloride 104 mmol/L (98-107); Creatinine Clr Calc Pharmacy 47.9171; Ferritin 345 ng/mL (15-150); Globulin 3.2 g/dL (1.3-4.6); Glomerular Filtration Rate 44.4 mL/min (90-130); Glucose 172 mg/dL (65-115); Iron 58 ug/dL (37-145); Osmolality Calculated 305 mOsm/kg (285-295); Percent Saturation 23.7 % (20-50); Potassium 3.5 mmol/L (3.5-5.1); Sodium 142 mmol/L (136-145); Total Bilirubin 0.6 mg/dL (0.15-1.2); Total Iron Binding Capacity 244 mcg/dl; Total Protein 7.1 g/dL (6.6-8.7); Unsaturated Iron Binding 186 ug/dL (112-347)
== END 2023-05-19 23:59 | disposition home or self-care (01) ==
PROVIDERS: Nurse Practitioner Family; PCP Nurse Practitioner Family; Visit Provider Internal Medicine Medical Oncology
DX: D61.818 Other pancytopenia (principal); D50.9 Iron deficiency anemia, unspecified; K74.60 Unspecified cirrhosis of liver; I81 Portal vein thrombosis; Z79.01 Long term (current) use of anticoagulants; Z79.891 Long term (current) use of opiate analgesic; Z79.899 Other long term (current) drug therapy
CPT/HCPCS: 36415; 80053; 82728; 83540; 83550; 85025; 99214

== ENCOUNTER → 2023-07-22 07:37 | Outpatient (BNVA) | payer MEDICARE, OTHER, SELFPAY | PROVIDERS: PCP Nurse Practitioner Family; Visit Provider Orthopaedic Surgery | DX: M54.50 Low back pain, unspecified (principal); M51.36 Other intervertebral disc degeneration, lumbar region | CPT/HCPCS: 72110; 99204 ==

== ENCOUNTER 2023-07-28 14:30 | Oncology outpatient (recurring) (ONCR) | payer MEDICARE, OTHER, SELFPAY ==
[2023-07-21 11:01] LABS: Basophils % 0.6 %; Eosinophils # 0.1 10^3/uL (0.0-0.8); Eosinophils % 1.6 %; Hematocrit 35.4 % (36-47); Lymphocytes # 0.5 10^3/uL (0.8-4.8); Lymphocytes % 14.2 %; Mean Corpuscular HGB Conc 32.8 g/dL (30-55); Mean Corpuscular Hemoglobin 29.9 pg (27-33); Mean Corpuscular Volume 91.2 fl (85-98); Mean Platelet Volume 11.6 fL (7.4-10.4); Monocytes # 0.4 10^3/uL (0.2-0.9); Monocytes % 11.6 %; Neutrophils # 2.28 10^3/uL (1.8-7.7); Neutrophils % 71.7 %; Nucleated Red Blood Cells % 0 %; Platelet Count 68 10^3/cmm (157-399); Red Blood Count 3.88 10^6/uL (3.85-5.65); Red Cell Distribution Width 15.3 % (12.1-15.1); White Blood Count 3.18 10^3/uL (3.29-11.43)
[2023-07-21 11:18] LABS: Alanine Aminotransferase 65 U/L (0-33); Alkaline Phosphatase 121 U/L (35-105); Anion Gap 12.7 (5-19); Aspartate Amino Transferase 71 U/L (0-32); Blood Urea Nitrogen 32 mg/dL (8-23); Calcium 9.4 mg/dL (8.5-10.5); Carbon Dioxide 28 mmol/L (22-29); Chloride 105 mmol/L (98-107); Glomerular Filtration Rate 44.4 mL/min (90-130); Glucose 111 mg/dL (65-115); Osmolality Calculated 302 mOsm/kg (285-295); Potassium 3.7 mmol/L (3.5-5.1); Sodium 142 mmol/L (136-145); Total Bilirubin 0.7 mg/dL (0.15-1.2)
[2023-07-21] MEDS: ferric carboxy (IVPB) 750 MG in sodium chloride 0.9% (100 ml) 100 ML 345 MG IV (12:19)
[2023-07-21 15:53] VITALS: BP 149/81; PULSE 62; RESP 16; TEMP 36.6; O2SAT 98
[2023-07-28] MEDS: ferric carboxy (IVPB) 750 MG in sodium chloride 0.9% (100 ml) 100 ML 345 MG IV (15:24)
[2023-07-28 15:27] VITALS: BP 124/70; PULSE 60; RESP 16; TEMP 36.7; O2SAT 96
[2023-07-28 15:50] VITALS: BP 118/67; PULSE 60; RESP 16; TEMP 36.8; O2SAT 96
== END 2023-08-17 23:59 | disposition home or self-care (01) ==
PROVIDERS: Nurse Practitioner Family; PCP Nurse Practitioner Family; Visit Provider Internal Medicine Medical Oncology
DX: D50.9 Iron deficiency anemia, unspecified; Z53.9 Procedure and treatment not carried out, unspecified reason
CPT/HCPCS: 36415; 80053; 85025; 96365; 99214; J1439

== ENCOUNTER 2023-08-10 08:25 | Outpatient (CLI) | payer MEDICARE, OTHER, SELFPAY ==
--- NOTE | 2023-08-10 09:30 | CT_ITS ---
WS: [id number] CT LUMBAR SPINE MYELOGRAM TECHNIQUE: Contrast-enhanced CT of the lumbar spine with coronal and sagittal reformatted images. CLINICAL INFORMATION: low back pain COMPARISON: None. DLP: 1170.[address] scans at [facility] use at least one of these dose optimization techniques: automated e xposure control; mA and/or kV adjustment per patient size (includes targeted exams where dose is matc hed to clinical indication); or iterative reconstruction. FINDINGS: L5 is partially sacralized. Mild lumbar curve convex LEFT and hypertrophic changes lower thoracic and lumbar spine. Prior pedicle screw fixation L3-L5 with interbody fusion grafts. Solid-appearing fusion L4-5 with evidence of bony bridging beyond the confines of the graft. Partial fusion L3-4. Some evidence of bony bridging beyon d the confines of the graft at this level. L5 is sacralized. Pedicle screws appear intact. Interconnecting rods appear intact. No evidence of vázquez rdware loosening. L1-L2: Small central disc osteophyte protrusion. Mild central canal stenosis. Narrowing of the subart icular recess bilaterally. Mild facet arthropathy. Foramen are patent. L2-L3: Mild disc bulging eccentric to the RIGHT. RIGHT foraminal protrusion impinges the exiting RIGH T L2 nerve root. Mild RIGHT greater than LEFT foraminal narrowing. Slight narrowing of the RIGHT suba rticular recess. Moderate facet arthropathy. L3-L4: Prior postoperative changes. Moderate facet arthropathy. Spinal canal and foramen are patent. L4-L5: Prior postoperative changes. Spinal canal has been decompressed. Mild RIGHT greater than LEFT bony foraminal narrowing. L5-S1: L5 is partially sacralized. Spinal canal is patent. Osteophytic ridging with slight contact of the S1 nerve roots. Mild facet arthropathy. Foramen are patent. Visualized pelvic bony structures: Normal. Paravertebral soft tissues: Normal. IMPRESSION: 1. L5 is sacralized. 2. Prior postoperative changes L3-L5 pedicle screw fixation. No evidence of loosening. 3. Solid-appearing interbody fusion graft L4-5. Partial fusion L3-4 described above. 4. Mild central canal stenosis L1-2 with central disc osteophyte protrusion and narrowing of the sub articular recess bilaterally. 5. RIGHT subarticular and foraminal protrusion L2-3 impinges the traversing RIGHT L3 nerve root and exiting RIGHT L2 nerve root 6. Spinal canal is patent at the fusion levels. 7. Mild RIGHT greater than LEFT L4-5 foraminal narrowing.
--- NOTE | 2023-08-10 09:30 | IR_ITS ---
WS: [id number] MYELOGRAM LUMBAR SPINE Fluoroscopic guided lumbar myelogram CLINICAL INFORMATION: low back pain TECHNIQUE: The procedure, including risks, benefits, and complications, were discussed with the patie nt who agreed to proceed. A timeout was performed to confirm correct patient, procedure, and site. Using sterile technique, the patient was prepped and draped in the usual sterile fashion. After admin istration of local anesthesia using 1% preservative-free lidocaine and using fluoroscopic guidance, a 22-gauge spinal needle was advanced into the subarachnoid space at the L3-4 level. Subsequently 13 c c of Omnipaque 240 was administered into the thecal sac. The needle was removed and hemostasis was ac hieved. Spot fluoroscopic images were obtained. FLUOROSCOPIC TIME: 2min [id number] # of spot films: 10 . IMPRESSION: 1. Uncomplicated lumbar myelogram. 2. Please see CT myelogram report for anatomic detail
== END 2023-08-10 08:26 | disposition home or self-care (01) ==
LOC: RAD 08:25
PROVIDERS: PCP Nurse Practitioner Family; Visit Provider Orthopaedic Surgery
DX: M48.061 Spinal stenosis, lumbar region without neurogenic claudication (principal); M51.26 Other intervertebral disc displacement, lumbar region
CPT/HCPCS: 62304; 72132; Q9966

== ENCOUNTER → 2023-08-26 12:22 | Outpatient (BNVA) | payer MEDICARE, OTHER, SELFPAY | PROVIDERS: PCP Nurse Practitioner Family; Visit Provider Orthopaedic Surgery | DX: M51.36 Other intervertebral disc degeneration, lumbar region (principal) | CPT/HCPCS: 99214 ==

== ENCOUNTER → 2023-09-15 12:33 | Outpatient (BNVA) | payer MEDICARE, OTHER, SELFPAY | PROVIDERS: PCP Nurse Practitioner Family; Visit Provider Internal Medicine Cardiovascular Disease | DX: I12.9 Hypertensive chronic kidney disease with stage 1 through stage 4 chronic kidney disease, or unspecified chronic kidney disease (principal); E11.22 Type 2 diabetes mellitus with diabetic chronic kidney disease; N18.9 Chronic kidney disease, unspecified; E78.5 Hyperlipidemia, unspecified; E03.9 Hypothyroidism, unspecified; K74.60 Unspecified cirrhosis of liver; K27.9 Peptic ulcer, site unspecified, unspecified as acute or chronic, without hemorrhage or perforation; D50.9 Iron deficiency anemia, unspecified; D61.818 Other pancytopenia; Z79.84 Long term (current) use of oral hypoglycemic drugs | CPT/HCPCS: 99214 ==

== ENCOUNTER 2023-11-05 10:00 | Oncology outpatient (recurring) (ONCR) | payer MEDICARE, OTHER, SELFPAY ==
[2023-10-28 12:25] VITALS: BP 132/76; PULSE 66; RESP 16; TEMP 36.6; O2SAT 96
[2023-10-28 12:31] LABS: Basophils % 0.4 %; Eosinophils # 0.1 10^3/uL (0.0-0.8); Eosinophils % 1.9 %; Hematocrit 32.9 % (36-47); Lymphocytes # 0.4 10^3/uL (0.8-4.8); Lymphocytes % 15.7 %; Mean Corpuscular HGB Conc 32.8 g/dL (30-55); Mean Corpuscular Volume 97.6 fl (85-98); Monocytes # 0.4 10^3/uL (0.2-0.9); Monocytes % 13.1 %; Neutrophils # 1.84 10^3/uL (1.8-7.7); Neutrophils % 68.9 %; Nucleated Red Blood Cells % 0 %; Platelet Count 62 10^3/cmm (157-399); Red Blood Count 3.37 10^6/uL (3.85-5.65); Red Cell Distribution Width 14.7 % (12.1-15.1); White Blood Count 2.67 10^3/uL (3.29-11.43)
[2023-10-28 12:44] LABS: Alanine Aminotransferase 63 U/L (0-33); Albumin Level 3.9 g/dL (3.5-5.2); Alkaline Phosphatase 135 U/L (35-105); Anion Gap 13.9 (5-19); Aspartate Amino Transferase 58 U/L (0-32); Blood Urea Nitrogen 36 mg/dL (8-23); Calcium 8.9 mg/dL (8.5-10.5); Carbon Dioxide 27 mmol/L (22-29); Chloride 102 mmol/L (98-107); Ferritin 101 ng/mL (15-150); Globulin 2.9 g/dL (1.3-4.6); Glucose 234 mg/dL (65-115); Iron 48 ug/dL (37-145); Osmolality Calculated 304 mOsm/kg (285-295); Percent Saturation 18.2 % (20-50); Potassium 3.9 mmol/L (3.5-5.1); Sodium 139 mmol/L (136-145); Total Bilirubin 0.6 mg/dL (0.15-1.2); Total Iron Binding Capacity 263 mcg/dl; Total Protein 6.8 g/dL (6.6-8.7); Unsaturated Iron Binding 215 ug/dL (112-347)
[2023-10-28] MEDS: ferric carboxy (PYXIS) 750 MG in sodium chloride 0.9% (100 ml) 100 ML 345 MG IV (14:44)
[2023-10-28] MEDS: sodium chloride 0.9% 250 ML 75 ML IV (14:45)
[2023-10-28 15:25] VITALS: BP 154/74; PULSE 64; RESP 16; TEMP 36.4; O2SAT 96
[2023-11-05] MEDS: ferric carboxy (PYXIS) 750 MG in sodium chloride 0.9% (100 ml) 100 ML 345 MG IV (10:01)
[2023-11-05 10:09] VITALS: BP 118/73; PULSE 65; RESP 18; TEMP 36.5; O2SAT 99
[2023-11-05 10:50] VITALS: BP 118/73; PULSE 62; RESP 16; O2SAT 98
== END 2023-11-17 23:59 | disposition home or self-care (01) ==
PROVIDERS: PCP Nurse Practitioner Family; Visit Provider Internal Medicine Medical Oncology
DX: D50.9 Iron deficiency anemia, unspecified (principal); Z53.9 Procedure and treatment not carried out, unspecified reason; Z79.899 Other long term (current) drug therapy
CPT/HCPCS: 36415; 80053; 82728; 83540; 83550; 85025; 96365; 99214; J1439; J7050

== ENCOUNTER 2023-11-23 09:24 | Outpatient (CLI) | payer MEDICARE, OTHER, SELFPAY ==
[2023-11-23 10:56] LABS: Free T4 Free Thyroxine 1.25 ng/dL (0.82-1.77); Thyroid Stimulating Hormone 3.23 uIU/mL (0.27-4.20)
[2023-11-25 09:20] LABS: Thyroid Peroxidase Antobodies 7 IU/mL (<9)
[2023-11-26 11:20] LABS: Thyroglobulin AB 14 IU/mL (< or = 1)
[2023-11-26 14:55] LABS: TSH Receptor Binding Antibody <1.00 IU/L (< OR = 2.00)
== END 2023-11-23 09:25 | disposition home or self-care (01) ==
LOC: LAB 09:26
PROVIDERS: PCP Nurse Practitioner Family; Visit Provider Internal Medicine
DX: I10 Essential (primary) hypertension; E03.9 Hypothyroidism, unspecified
CPT/HCPCS: 36415; 83516; 84439; 84443; 86376; 86800

== ENCOUNTER 2023-12-02 11:17 | Oncology outpatient (recurring) (ONCR) | payer MEDICARE, SELFPAY ==
[2023-12-02 11:55] LABS: Eosinophils # 0.1 10^3/uL (0.0-0.8); Eosinophils % 1.6 %; Lymphocytes # 0.4 10^3/uL (0.8-4.8); Lymphocytes % 11.3 %; Mean Corpuscular HGB Conc 34.3 g/dL (30-55); Mean Corpuscular Hemoglobin 33.4 pg (27-33); Mean Corpuscular Volume 97.4 fl (85-98); Mean Platelet Volume 12.6 fL (7.4-10.4); Monocytes # 0.4 10^3/uL (0.2-0.9); Monocytes % 11.3 %; Neutrophils # 2.32 10^3/uL (1.8-7.7); Neutrophils % 74.8 %; Nucleated Red Blood Cells % 0 %; Platelet Count 48 10^3/cmm (157-399); Red Cell Distribution Width 14.2 % (12.1-15.1)
[2023-12-02 12:16] LABS: Alanine Aminotransferase 50 U/L (0-33); Albumin Level 3.8 g/dL (3.5-5.2); Alkaline Phosphatase 115 U/L (35-105); Anion Gap 16.4 (5-19); Aspartate Amino Transferase 40 U/L (0-32); Blood Urea Nitrogen 30 mg/dL (8-23); Calcium 8.6 mg/dL (8.5-10.5); Carbon Dioxide 23 mmol/L (22-29); Chloride 106 mmol/L (98-107); Globulin 3.1 g/dL (1.3-4.6); Glucose 159 mg/dL (65-115); Osmolality Calculated 304 mOsm/kg (285-295); Potassium 3.4 mmol/L (3.5-5.1); Sodium 142 mmol/L (136-145); Total Bilirubin 0.9 mg/dL (0.15-1.2); Total Protein 6.9 g/dL (6.6-8.7)
[2023-12-02 12:53] LABS: Ferritin 846 ng/mL (15-150); Iron 61 ug/dL (37-145); Total Iron Binding Capacity 234 mcg/dl; Unsaturated Iron Binding 173 ug/dL (112-347)
== END 2023-12-18 23:59 | disposition home or self-care (01) ==
PROVIDERS: Nurse Practitioner Family; PCP Nurse Practitioner Family; Visit Provider Internal Medicine Medical Oncology
DX: D50.9 Iron deficiency anemia, unspecified (principal); Z79.01 Long term (current) use of anticoagulants; Z79.899 Other long term (current) drug therapy
CPT/HCPCS: 36415; 80053; 82728; 83540; 83550; 85025; 99213

== ENCOUNTER 2024-01-11 08:59 | Outpatient (CLI) | payer MEDICARE, OTHER, SELFPAY ==
[2024-01-11 09:47] LABS: Free T4 Free Thyroxine 1.23 ng/dL (0.82-1.77); Thyroid Stimulating Hormone 2.53 uIU/mL (0.27-4.20)
== END 2024-01-11 09:00 | disposition home or self-care (01) ==
LOC: LAB 09:02
PROVIDERS: PCP Nurse Practitioner Family; Visit Provider Internal Medicine
DX: I10 Essential (primary) hypertension (principal); E11.9 Type 2 diabetes mellitus without complications; E03.9 Hypothyroidism, unspecified; H04.123 Dry eye syndrome of bilateral lacrimal glands; Z79.890 Hormone replacement therapy; Z79.4 Long term (current) use of insulin; Z79.84 Long term (current) use of oral hypoglycemic drugs
CPT/HCPCS: 36415; 84439; 84443; 99214

== ENCOUNTER 2024-02-02 10:46 | Oncology outpatient (recurring) (ONCR) | payer MEDICARE, OTHER, SELFPAY ==
[2024-02-02 11:10] LABS: Basophils % 0.3 %; Eosinophils % 0.9 %; Hematocrit 35.8 % (36-47); Lymphocytes # 0.4 10^3/uL (0.8-4.8); Lymphocytes % 10.4 %; Mean Corpuscular HGB Conc 32.7 g/dL (30-55); Mean Corpuscular Hemoglobin 31.3 pg (27-33); Mean Corpuscular Volume 95.7 fl (85-98); Mean Platelet Volume 12.8 fL (7.4-10.4); Monocytes # 0.3 10^3/uL (0.2-0.9); Monocytes % 10.1 %; Neutrophils # 2.65 10^3/uL (1.8-7.7); Neutrophils % 78.3 %; Nucleated Red Blood Cells % 0 %; Platelet Count 63 10^3/cmm (157-399); Red Blood Count 3.74 10^6/uL (3.85-5.65); Red Cell Distribution Width 14.3 % (12.1-15.1); White Blood Count 3.38 10^3/uL (3.29-11.43)
[2024-02-02 11:36] LABS: Alanine Aminotransferase 72 U/L (0-33); Albumin Level 3.9 g/dL (3.5-5.2); Alkaline Phosphatase 168 U/L (35-105); Anion Gap 13.7 (5-19); Aspartate Amino Transferase 69 U/L (0-32); Blood Urea Nitrogen 30 mg/dL (8-23); Calcium 8.9 mg/dL (8.5-10.5); Carbon Dioxide 27 mmol/L (22-29); Chloride 105 mmol/L (98-107); Creatinine Clr Calc Pharmacy 40.9843; Ferritin 444 ng/mL (15-150); Globulin 3.1 g/dL (1.3-4.6); Glucose 99 mg/dL (65-115); Iron 38 ug/dL (37-145); Osmolality Calculated 300 mOsm/kg (285-295); Percent Saturation 16.3 % (20-50); Potassium 3.7 mmol/L (3.5-5.1); Sodium 142 mmol/L (136-145); Total Bilirubin 0.8 mg/dL (0.15-1.2); Total Iron Binding Capacity 233 mcg/dl; Unsaturated Iron Binding 195 ug/dL (112-347)
[2024-02-08 14:54] LABS: Soluble Transferrin Receptor 2.86 mg/L (0.76-1.76)
== END 2024-02-17 23:59 | disposition home or self-care (01) ==
PROVIDERS: Nurse Practitioner Family; PCP Nurse Practitioner Family; Visit Provider Internal Medicine Hematology & Oncology
DX: D50.9 Iron deficiency anemia, unspecified (principal); Z79.01 Long term (current) use of anticoagulants; Z79.899 Other long term (current) drug therapy
CPT/HCPCS: 36415; 80053; 82728; 83540; 83550; 84238; 85025; 99214

== ENCOUNTER → 2024-02-22 12:53 | Outpatient (BNVA) | payer MEDICARE, OTHER, SELFPAY | PROVIDERS: PCP Nurse Practitioner Family; Referring Provider Nurse Practitioner Family; Visit Provider Dermatology | DX: L82.0 Inflamed seborrheic keratosis (principal); L82.1 Other seborrheic keratosis; D22.39 Melanocytic nevi of other parts of face; L91.8 Other hypertrophic disorders of the skin; L81.4 Other melanin hyperpigmentation; D48.5 Neoplasm of uncertain behavior of skin; L57.8 Other skin changes due to chronic exposure to nonionizing radiation; D22.5 Melanocytic nevi of trunk; W89.1XXA Exposure to tanning bed, initial encounter; X58.XXXA Exposure to other specified factors, initial encounter | CPT/HCPCS: 11104; 11200; 17110; 99203 ==

== ENCOUNTER → 2024-03-06 07:49 | Outpatient (BNVA) | payer MEDICARE, OTHER, SELFPAY | PROVIDERS: PCP Nurse Practitioner Family; Visit Provider Student in an Organized Health Care Education/Training Program | DX: K62.3 Rectal prolapse (principal) | CPT/HCPCS: 99204 ==

== ENCOUNTER 2024-03-06 13:00 | Oncology outpatient (recurring) (ONCR) | payer MEDICARE, SELFPAY ==
[2024-03-01 12:02] LABS: Basophils % 0.4 %; Eosinophils % 0.8 %; Hematocrit 35.6 % (36-47); Lymphocytes # 0.3 10^3/uL (0.8-4.8); Lymphocytes % 13.3 %; Mean Corpuscular Volume 96.7 fl (85-98); Mean Platelet Volume 12.8 fL (7.4-10.4); Monocytes # 0.3 10^3/uL (0.2-0.9); Monocytes % 10.8 %; Neutrophils # 1.86 10^3/uL (1.8-7.7); Neutrophils % 74.7 %; Nucleated Red Blood Cells % 0 %; Platelet Count 61 10^3/cmm (157-399); Red Blood Count 3.68 10^6/uL (3.85-5.65); Red Cell Distribution Width 14.2 % (12.1-15.1); White Blood Count 2.49 10^3/uL (3.29-11.43)
[2024-03-01 12:23] LABS: Alanine Aminotransferase 61 U/L (0-33); Albumin Level 3.9 g/dL (3.5-5.2); Alkaline Phosphatase 155 U/L (35-105); Anion Gap 14.9 (5-19); Aspartate Amino Transferase 72 U/L (0-32); Blood Urea Nitrogen 27 mg/dL (8-23); Calcium 8.9 mg/dL (8.5-10.5); Carbon Dioxide 26 mmol/L (22-29); Chloride 104 mmol/L (98-107); Globulin 2.9 g/dL (1.3-4.6); Glucose 89 mg/dL (65-115); Osmolality Calculated 297 mOsm/kg (285-295); Potassium 3.9 mmol/L (3.5-5.1); Sodium 141 mmol/L (136-145); Total Bilirubin 0.7 mg/dL (0.15-1.2); Total Protein 6.8 g/dL (6.6-8.7)
[2024-03-01 14:06] LABS: Ferritin 263 ng/mL (15-150); Iron 36 ug/dL (37-145); Percent Saturation 15.9 % (20-50); Total Iron Binding Capacity 226 mcg/dl; Unsaturated Iron Binding 190 ug/dL (112-347)
[2024-03-06 10:19] VITALS: BP 111/52; PULSE 63; RESP 16; TEMP 36.5; O2SAT 94
[2024-03-06] MEDS: ferric carboxy (PYXIS) 750 MG in sodium chloride 0.9% (100 ml) 100 ML 345 MG IV (10:37)
[2024-03-06 12:32] VITALS: BP 105/61; PULSE 62; RESP 18; TEMP 36.3; O2SAT 99
== END 2024-03-18 23:59 | disposition home or self-care (01) ==
PROVIDERS: Nurse Practitioner Family; PCP Nurse Practitioner Family; Visit Provider Internal Medicine Hematology & Oncology
DX: D50.9 Iron deficiency anemia, unspecified (principal); Z53.9 Procedure and treatment not carried out, unspecified reason; Z79.899 Other long term (current) drug therapy
CPT/HCPCS: 36415; 80053; 82728; 83540; 83550; 85025; 96365; J1439

== ENCOUNTER 2024-04-03 17:54 | Inpatient (IN) | payer MEDICARE, OTHER, SELFPAY ==
[2024-04-03] VITALS (8 sets, daily range): BP systolic 110–141; BP diastolic 57–70; PULSE 60–76; RESP 12–18; TEMP 36.4–36.8; O2SAT 97–100
--- NOTE | 2024-04-03 18:12 | ECG_ITS ---
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 Measurements Intervals [place] Rate: 73 P: 2 CT: 141 QRS: 29 QRSD: 99 T: 19 QT: 406 QTc: 448 Interpretive Statements SINUS RHYTHM LOW QRS VOLTAGE IN PRECORDIAL LEADS [QRS DEFLECTION < 1.0 mV IN CHEST LEADS] Compared to ECG 10/05/2018 09:20:01 No significant changes Electronically Signed On 04-03-2024 19:23:42 FIREAR[employer] SALES ASSOCIATE by Michelle Reid M.D. [email or web address]
[2024-04-03 19:15] LABS: Basophils % 0.5 %; Eosinophils # 0.1 10^3/uL (0.0-0.8); Eosinophils % 1.3 %; Hematocrit 24.8 % (36-47); Lymphocytes # 0.5 10^3/uL (0.8-4.8); Mean Corpuscular Hemoglobin 32.2 pg (27-33); Mean Corpuscular Volume 103.8 fl (85-98); Mean Platelet Volume 12.9 fL (7.4-10.4); Monocytes # 0.4 10^3/uL (0.2-0.9); Monocytes % 10.6 %; Neutrophils # 2.86 10^3/uL (1.8-7.7); Neutrophils % 74.1 %; Nucleated Red Blood Cells % 0 %; Platelet Count 90 10^3/cmm (157-399); Red Blood Count 2.39 10^6/uL (3.85-5.65); Red Cell Distribution Width 18.3 % (12.1-15.1); White Blood Count 3.86 10^3/uL (3.29-11.43)
--- NOTE | 2024-04-03 19:20 | ED_ITS ---
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 Of utmost concern to her is that she has new swelling in her abdomen. She has known cirrhosis. She says she has never had swelling in her abdomen before. She thinks this may be because of a medicine that was given to her by Dr. Ling for her bladder. She thinks that might be causing her to retain fluid. She takes 80 mg of Lasix daily. She also says she has had some dark stools for some time now. She has not been dizzy. She says she has had difficulty urinating. No abdominal pain. No altered mental status. No focal motor deficits. She recently started taking Xarelto for a portal vein thrombosis it sounds like. She says all of these issues started about 2 weeks ago. The black stools and the decreased urination and the abdominal swelling. Related Data Home Medications Medication Instructions Recorded Confirmed carvedilol 6.25 mg tablet 6.25 mg PO BID 02/01/20 03/06/24 atorvastatin 40 mg tablet 40 mg PO DAILY 12/02/21 03/06/24 cholecalciferol (vitamin D3) 10 10 mcg PO DAILY 12/02/21 03/06/24 mcg (400 unit) capsule dapagliflozin propanediol 10 mg 10 mg PO DAILY 12/02/21 03/06/24 tablet (Farxiga) vitamin E (dl, acetate) 180 mg 400 unit PO DAILY 12/02/21 03/06/24 (400 unit) capsule magnesium oxide 400 mg PO BID 06/04/22 03/06/24 potassium chloride 10 mEq 20 meq PO DAILY 01/18/23 03/06/24 tablet,extended release loteprednol etabonate 0.5 % eye 1 drp ophthalmic (eye) ONCE 03/02/23 03/06/24 gel drops semaglutide 0.25 mg or 0.5 mg (2 2 mg SUBCUT .weekly 03/02/23 03/06/24 mg/3 mL) subcutaneous pen injector (Ozempic) insulin degludec 100 unit/mL (3 40 unit SUBCUT DAILY 02/09/24 03/06/24 mL) subcutaneous pen (Tresiba FlexTouch U-100 insulin) Previous Rx's Medication Instructions Recorded furosemide 40 mg tablet See Rx Instructions .Route 08/16/23 .COMPLEX #180 tabs levothyroxine 50 mcg tablet 50 mcg PO DAILY #90 tabs 11/25/23 estradiol 0.01% (0.1 mg/gram) 1 g vaginal .COMPLEX #42.5 grams 01/20/24 vaginal cream (Estrace) oxybutynin chloride 5 mg See Rx Instructions .Route 03/06/24 tablet,extended release 24 hr .COMPLEX #90 tabs Allergies Allergy/AdvReac Type Severity Reaction Status Date / Time Sulfa (Sulfonamide Allergy rash Verified 04/03/24 18:12 Antibiotics) sulfamethoxazole Allergy Unknown Verified 04/03/24 18:12 [From Bactrim] tetracycline Allergy rash Verified 04/03/24 18:12 trimethoprim [From Bactrim] Allergy rash Verified 04/03/24 18:12 influenza virus vaccine AdvReac muscle Verified 04/03/24 18:12 bivalent aches/short of breath simvastatin AdvReac ADR-Cramping Verified 04/03/24 18:12 of the Muscles Tbmmils-MGA-SmJ Reductase AdvReac ADR-Cramping Verified 04/03/24 18:12 Inhibitor of the [Mfgymps-Omv-Kzx Reductase Muscles Inhibitor] Review of Systems 2 Narrative: Constitutional symptoms: Negative except as documented in HPI. Skin symptoms: Negative except as documented in HPI. Eye symptoms: Negative except as documented in HPI. ENMT symptoms: Negative except as documented in HPI. Respiratory symptoms: Negative except as documented in HPI. Cardiovascular symptoms: Negative except as documented in HPI. Gastrointestinal symptoms: Negative except as documented in HPI. Genitourinary symptoms: Negative except as documented in HPI. Musculoskeletal symptoms: Negative except as documented in HPI. Neurologic symptoms: Negative except as documented in HPI. Psychiatric symptoms: Negative except as documented in HPI. Endocrine symptoms: Negative except as documented in HPI. PFSH ED 2 PFSH: Medical History Esophageal varices Pancytopenia Liver cirrhosis secondary to DILLARD With portal hypertension History of pulmonary embolism (08/2015) Portal vein thrombosis Chronic kidney disease Lyn Denise following Type 2 diabetes mellitus Iron deficiency anemia Degenerative disc disease Peptic ulcer Hypothyroidism Diagnosed in her 40s and managed by PMD. Does not have an account underwriter Hyperlipidemia HTN (hypertension) Diagnosed in her 30s and it is managed by her primary care provider, Dr Pena. Surgical History S/P endoscopy multiple esophageal varices banding treatment-- [facility] follows History of laparotomy ---states that she had a laparotomy for cyst in her ovary to help her get and states that appendectomy was performed at the same time. Status post delivery delivery performed in 1977. H/O shoulder surgery Right shoulder surgery-arthroscopy for torn rotator cuff. Rectocele (~2007) Posterior vaginal repair- [facility] Previous back surgery 2014-- low back 2019-- low back S/P cholecystectomy Open procedure-1983 S/P hysterectomy (~1999) LIZZIE,BSO due to PCOS. Performed at [facility]. She had already gone through menopause. Family History Mother Diabetes Hypertension Grandfather Diabetes Maternal and Paternal Heart disease Paternal Grandmother Diabetes Maternal and Paternal Brother Diabetes Heart disease Hypertension Sister Diabetes Heart disease Hypertension Thyroid disease Father Stroke 50 years old Social History Smoking and tobacco/nicotine status: never used tobacco/nicotine Substance/Drug Use: never Physical Exam 2 Narrative: EXAM NARRATIVE: General: Alert, no acute distress. Skin: Warm, dry. Head: Normocephalic, atraumatic. Neck: Supple, trachea midline. Eye: Extraocular movements are intact. Ears, nose, mouth and throat: mucosa moist. Cardiovascular: Regular, Normal peripheral perfusion. Respiratory: Lungs are clear to auscultation, respirations are non-labored, breath sounds are equal, Symmetrical chest wall expansion. Gastrointestinal: Soft, Nontender, mildly distended Musculoskeletal: Normal ROM, no deformity. Neurological: Alert and oriented, No focal neurological deficit observed. Psychiatric: Cooperative, appropriate mood & affect. Course 2 Vital Signs: Vital signs: Vital Signs Temperature 98.2 F 04/03/24 22:34 Pulse Rate 61 04/03/24 22:34 Respiratory Rate 13 04/03/24 22:34 Blood Pressure 117/57 04/03/24 22:34 Pulse Oximetry 99 04/03/24 22:34 Oxygen Delivery Me thod Room Air 04/03/24 22:05 MDM - GI Bleed Medical Decision Making Medical decision making: Differential diagnosis including but not limited to and based on the above HPI, review of systems and physical exam: In a patient with upper GI bleeding would have concern for upper gi bleed from varices or ulcer. Concern for anemia. Concern for liver disease. concern for anticoagulation. Orders placed to evaluate differential diagnosis based on the above differential, HPI and physical exam Lab Review: Laboratory results were reviewed and interpreted by myself the emergency room physician. White count is 3.86. Hemoglobin is down to 7.7 from 11.5 just over a month ago. Platelets are 90. BUN and creatinine are stable and at her baseline at 32 and 1.2. This would indicate that she has not had a recent upper GI bleed. However obviously she has had some blood loss in a very well of had bleeding previously. Also of note is her INR is 4.5. CT of the abdomen pelvis with contrast. Cirrhosis with evidence of portal hypertension. Splenomegaly. Ascites. Esophageal varices. Rest of read below. This was reviewed and interpreted by myself the emergency room physician. I also reviewed the radiology report. Consultation: I spoke with Dr. Carrillo who is on-call for oncology. He recommends 2 units PRBC transfusion. From his standpoint he has an appointment with her later in the week and feels like she might go home. Consultation: I spoke with Dr. Delgadillo at [facility] in [place]. She is on-call for the hepatology team there. Patient follows with Dr Damon on that service. Given new ascites, possible GI bleed, she is accepted the patient to [facility]. However speaking with the transfer center it may be a day or 2 before a bed becomes available. Faculty Member feels that she likely needs an MRI to evaluate for worsening portal vein thrombosis. Also needs endoscopy to evaluate her for an upper GI bleed. I reviewed the patient's medical record. Reexamination: Patient remained stable. No increased work of breathing. No altered mental status. No rectal bleeding or dark stools while she has been here so far. Abdomen is nontender Consultation: I spoke with Dr. Guerrero who is on-call for the hospitalist service. Given that the patient may not be transferred today or tomorrow I have asked for assistance in managing the patient while she is here. Assessment and plan: Anemia Upper GI bleeding Cirrhosis Coagulopathy Chronic anticoagulation Portal hypertension Portal vein thrombosis Chronic kidney disease Ascites ?2 units packed red blood cells given here in the emergency room. -Plan for transfer to [employer]. In the meantime we will follow recs from the hospitalist service. -I discussed the patient with the hospitalist on-call who is admitting the patient. - Discussed findings and plan with patient. Answered any questions. - All laboratory values were reviewed and interpreted personally by myself, the ER physician - All imaging was reviewed and interpreted personally by myself, the ER physician. - Evaluation and treatment of this problem were appropriate in the emergency setting Lab Data 04/03/24 18:53 04/03/24 18:53 Radiology Impressions Abdomen/Pelvis CT 04/03/24 20:12 IMPRESSION: 1. Hepatic cirrhosis with evidence of portal hypertension manifested by splenomegaly, ascites, paraesophageal varices, and calcifications of the portal vein. 2. Suggestion of a few thickened segments of small bowel in the left mid abdomen. Differential diagnosis includes focal enteritis and findings secondary to portal hypertension. COMMENTS: Consistent with the [employer]'s Incidental Findings Committee white paper (J Am Sindy Radiol 2018): Any incidental renal lesion less than 1 cm or classified as too small to characterize, or any incidental cystic renal lesion characterized as simple-appearing, is likely benign. No follow-up imaging is recommended for these lesions per consensus recommendations based on imaging criteria. Laboratory Results WBC 3.86 10^3/uL (3.29-11.43) 04/03/24 18:53 RBC 2.39 10^6/uL (3.85-5.65) L 04/03/24 18:53 Hgb 7.70 g/dL (11.27-16.99) L 04/03/24 18:53 Hct 24.8 % (36-47) L 04/03/24 18:53 MCV 103.8 fl (85-98) H 04/03/24 18:53 MCH 32.2 pg (27-33) 04/03/24 18:53 MCHC 31.0 g/dL (30-55) 04/03/24 18:53 RDW 18.3 % (12.1-15.1) H 04/03/24 18:53 Plt Count 90 10^3/cmm (157-399) L 04/03/24 18:53 MPV 12.9 fL (7.4-10.4) H 04/03/24 18:53 Neut % (Auto) 74.1 % 04/03/24 18:53 Lymph % (Auto) 13.0 % 04/03/24 18:53 [place] % (Auto) 10.6 % 04/03/24 18:53 Eos % (Auto) 1.3 % 04/03/24 18:53 Baso % (Auto) 0.5 % 04/03/24 18:53 Neut # (Auto) 2.86 10^3/uL (1.8-7.7) 04/03/24 18:53 Lymph # (Auto) 0.5 10^3/uL (0.8-4.8) L 04/03/24 18:53 [place] # (Auto) 0.4 10^3/uL (0.2-0.9) 04/03/24 18:53 Eos # (Auto) 0.1 10^3/uL (0.0-0.8) 04/03/24 18:53 Baso # (Auto) 0.0 10^3/uL (0.0-0.1) 04/03/24 18:53 Nucleated RBC % (auto) 0 % 04/03/24 18:53 Nucleated RBCs # 0.0 /100WBC 04/03/24 18:53 PT 44.90 SECONDS (12.1-14.9) H 04/03/24 18:53 INR 4.55 (0.8-1.2) H 04/03/24 18:53 Sodium 143 mmol/L (136-145) 04/03/24 18:53 Potassium 3.1 mmol/L (3.5-5.1) L 04/03/24 18:53 Chloride 102 mmol/L (98-107) 04/03/24 18:53 Carbon Dioxide 26 mmol/L (22-29) 04/03/24 18:53 Anion Gap 18.1 (5-19) 04/03/24 18:53 BUN 32 mg/dL (8-23) H 04/03/24 18:53 Creatinine 1.2 mg/dL (0.5-0.9) H 04/03/24 18:53 GFR Calculation Not Reportable 04/03/24 18:53 Glucose 121 mg/dL (65-115) H 04/03/24 18:53 Calculated Osmolality 304 mOsm/kg (285-295) H 04/03/24 18:53 Calcium 8.4 mg/dL (8.5-10.5) L 04/03/24 18:53 Magnesium 2.4 mg/dL (1.7-2.3) H 04/03/24 18:53 Total Bilirubin 0.6 mg/dL (0.15-1.2) 04/03/24 18:53 AST 44 U/L (0-32) H 04/03/24 18:53 ALT 42 U/L (0-33) H 04/03/24 18:53 Alkaline Phosphatase 128 U/L (35-105) H 04/03/24 18:53 Total Protein 5.8 g/dL (6.6-8.7) L 04/03/24 18:53 Albumin 3.3 g/dL (3.5-5.2) L 04/03/24 18:53 Globulin 2.5 g/dL (1.3-4.6) 04/03/24 18:53 Blood Type O Negative 04/03/24 18:53 Rho(D) Type Rh negative 04/03/24 18:53 Antibody Screen Negative 04/03/24 18:53 Crossmatch See Detail 04/03/24 18:53 All radiology interpretation(s) finalized by discharge Discharge Plan Discharge Patient Disposition: Xfer Short-Term Hosp Clinical Impression: Anemia, Upper GI bleeding, Cirrhosis, Portal hypertension, Portal vein thrombosis, Chronic anticoagulation, Coagulopathy, Thrombocytopenia, Chronic kidney disease, Ascites Condition: Stable Referrals: Marietta Villar NP [Primary Care Provider] - Coding Level of Care Code ED Wave Soldering Machine Operator for Iman Vasquez
[2024-04-03 19:30] LABS: INR 4.55 (0.8-1.2)
[2024-04-03] MEDS: pantoprazole 40 mg SDV 80 MG IVP (19:33)
[2024-04-03 19:34] LABS: Alanine Aminotransferase 42 U/L (0-33); Albumin Level 3.3 g/dL (3.5-5.2); Alkaline Phosphatase 128 U/L (35-105); Anion Gap 18.1 (5-19); Aspartate Amino Transferase 44 U/L (0-32); Blood Urea Nitrogen 32 mg/dL (8-23); Calcium 8.4 mg/dL (8.5-10.5); Carbon Dioxide 26 mmol/L (22-29); Chloride 102 mmol/L (98-107); Globulin 2.5 g/dL (1.3-4.6); Glucose 121 mg/dL (65-115); Magnesium 2.4 mg/dL (1.7-2.3); Osmolality Calculated 304 mOsm/kg (285-295); Potassium 3.1 mmol/L (3.5-5.1); Sodium 143 mmol/L (136-145); Total Bilirubin 0.6 mg/dL (0.15-1.2); Total Protein 5.8 g/dL (6.6-8.7)
--- NOTE | 2024-04-03 20:12 | CTR_ITS ---
PROCEDURE INFORMATION: Exam: CT Abdomen And Pelvis With Contrast Exam date and time: 04/03/2024 8:39 PM Age: 73 years old Clinical indication: Bloating; Additional info: Abdominal distension TECHNIQUE: Imaging protocol: Computed tomography of the abdomen and pelvis with contrast. Radiation optimization: All CT scans at this facility use at least one of these dose optimization techniques: automated exposure control; mA and/or kV adjustment per patient size (includes targeted exams where dose is matched to clinical indication); or iterative reconstruction. Contrast material: OMNI 350; Contrast volume: 100 ml; Contrast route: INTRAVENOUS (IV); COMPARISON: CT abdomen w con* [id number] 09/15/2023 8:10 AM RADIATION DOSE METRICS: Total DLP (mGy-cm): 765.38 FINDINGS: Lungs: The lung bases are clear. Heart: Heart size is within normal limits. There is no pericardial effusion or pericardial thickening. Liver: Nodular liver surface consistent with hepatic cirrhosis. No hepatic masses on single phase imaging. Gallbladder and biliary ducts: The gallbladder is surgically absent. There is no ductal dilatation. Pancreas: The pancreas is normal. Spleen: Mild splenomegaly. Adrenal glands: The adrenal glands are normal. Kidneys and ureters: There is normal enhancement of the kidneys. No renal calcifications are identified. There is no hydronephrosis. There are bilateral subcentimeter renal low-density lesions which are too small for accurate characterization, likely representing simple cysts. Stomach and bowel: Suggestion of a few thickened segments of small bowel in the left mid abdomen. No large or small bowel obstruction. Mild thickening of the right colon consistent with portal hypertension. Appendix: A normal appendix is not identified. There is no secondary evidence of acute appendicitis. Intraperitoneal space: Mild ascites. Mild mesenteric edema. No pneumoperitoneum. No obvious inflammatory changes though evaluation is limited by mesenteric edema. Vasculature: Paraesophageal varices are noted. Calcifications and intimal thickening or chronic thrombus of the portal vein, stable prior study and compatible portal hypertension. Atherosclerotic calcifications of the aorta are present. No aneurysm is identified. Lymph nodes: No enlarged lymph nodes are identified. Urinary bladder: The bladder is unremarkable. Reproductive: The uterus is absent. Bones/joints: Postoperative changes of the lumbar spine. No acute osseous abnormalities are seen. Soft tissues: Mild diffuse subcutaneous edema. CT/CT abdomen pelvis w con* [id number] IMPRESSION: 1. Hepatic cirrhosis with evidence of portal hypertension manifested by splenomegaly, ascites, paraesophageal varices, and calcifications of the portal vein. 2. Suggestion of a few thickened segments of small bowel in the left mid abdomen. Differential diagnosis includes focal enteritis and findings secondary to portal hypertension. COMMENTS: Consistent with the [employer]'s Incidental Findings Committee white paper (J Am Sindy Radiol 2018): Any incidental renal lesion less than 1 cm or classified as too small to characterize, or any incidental cystic renal lesion characterized as simple-appearing, is likely benign. No follow-up imaging is recommended for these lesions per consensus recommendations based on imaging criteria.
[2024-04-03] MEDS: iohexol 350 mg/mL 500 mL Btl (per mL) IV (20:43)
[2024-04-03] MEDS: sodium chloride 0.9% 100 mL Bag 50 ML IV (21:39)
--- NOTE | 2024-04-03 23:03 | P.CONIM_ITS ---
Providers/Reason For Consult 2 Consulting Physician/Specialty*: Internal medicine/hospitalist service Reason for Consult*: Medical management Primary Care Provider: Marietta Villar NP History of Present Illness History of Present Illness Caitlin Palacios is a 73 year old female with a past medical history significant for liver cirrhosis with esophageal varices status post bandings, hypertension, hyperlipidemia, hypothyroidism, type 2 diabetes mellitus, duodenal ulcers, gastric antral vascular ectasia, iron deficiency anemia on iron infusions, rectal prolapse, pulmonary embolism, portal hypertension, portal vein thrombosis and multiple other comorbidities who presents to the emergency department who presents to the emergency department with generalized unwell feeling. Patient states she was in her usual state of health until about 2 weeks ago when she became ill. At that time, she reported dizziness, significant fatigue, and malaise. She reports she thought the symptoms would pass but have persisted. She also endorses intermittent abdominal swelling with some discomfort, currently improved from earlier today. She notes intermittent black stools. She reports that happened about 2 weeks after her iron infusions. She queries if they could be related to the iron infusions. In the emergency department, patient was found to have hemoglobin of 7.7, previously 11.4. She has chronic thrombocytopenia revealing platelets of 90. INR resulted at 4.55. Hypokalemic 3.1. Patient was discussed with Dr. Carrillo by ED provider, recommending 2 units of packed red blood cell transfusion. ED provider contacted [facility] hepatology where patient follows for liver disease. Patient was suspected for transfer. Bed was not immediately available. Review of Systems 2 Narrative: A complete review of systems was obtained and is negative except as stated in HPI. Medications/Allergies Home Medications Medication Instructions Recorded Confirmed Last Taken Type carvedilol 6.25 mg tablet 6.25 mg PO BID 02/01/20 03/06/24 Unknown History atorvastatin 40 mg tablet 40 mg PO DAILY 12/02/21 03/06/24 Unknown History cholecalciferol (vitamin D3) 10 10 mcg PO DAILY 12/02/21 03/06/24 Unknown History mcg (400 unit) capsule dapagliflozin propanediol 10 mg 10 mg PO DAILY 12/02/21 03/06/24 Unknown History tablet (Farxiga) vitamin E (dl, acetate) 180 mg 400 unit PO DAILY 12/02/21 03/06/24 Unknown History (400 unit) capsule magnesium oxide 400 mg PO BID 06/04/22 03/06/24 Unknown History potassium chloride 10 mEq 20 meq PO DAILY 01/18/23 03/06/24 Unknown History tablet,extended release loteprednol etabonate 0.5 % eye 1 drp ophthalmic (eye) ONCE 03/02/23 03/06/24 Unknown History gel drops semaglutide 0.25 mg or 0.5 mg (2 2 mg SUBCUT .weekly 03/02/23 03/06/24 Unknown History mg/3 mL) subcutaneous pen injector (Ozempic) furosemide 40 mg tablet See Rx Instructions .Route 08/16/23 03/06/24 Unknown Rx .COMPLEX #180 tabs levothyroxine 50 mcg tablet 50 mcg PO DAILY #90 tabs 11/25/23 03/06/24 Unknown Rx estradiol 0.01% (0.1 mg/gram) 1 g vaginal .COMPLEX #42.5 grams 01/20/24 03/06/24 Unknown Rx vaginal cream (Estrace) insulin degludec 100 unit/mL (3 40 unit SUBCUT DAILY 02/09/24 03/06/24 Unknown History mL) subcutaneous pen (Tresiba FlexTouch U-100 insulin) oxybutynin chloride 5 mg See Rx Instructions .Route 03/06/24 Unknown Rx tablet,extended release 24 hr .COMPLEX #90 tabs Allergies Allergy/AdvReac Type Severity Reaction Status Date / Time Sulfa (Sulfonamide Allergy rash Verified 04/03/24 18:12 Antibiotics) sulfamethoxazole Allergy Unknown Verified 04/03/24 18:12 [From Bactrim] tetracycline Allergy rash Verified 04/03/24 18:12 trimethoprim [From Bactrim] Allergy rash Verified 04/03/24 18:12 influenza virus vaccine AdvReac muscle Verified 04/03/24 18:12 bivalent aches/short of breath simvastatin AdvReac ADR-Cramping Verified 04/03/24 18:12 of the Muscles Cmlowmq-XZO-PhT Reductase AdvReac ADR-Cramping Verified 04/03/24 18:12 Inhibitor of the [Zbveqzm-Wjk-Rsg Reductase Muscles Inhibitor] PFSH Acute 2 PFSH: Medical History Esophageal varices Pancytopenia Liver cirrhosis secondary to DILLARD With portal hypertension History of pulmonary embolism (08/2015) Portal vein thrombosis Chronic kidney disease Lyn Denise following Type 2 diabetes mellitus Iron deficiency anemia Degenerative disc disease Peptic ulcer Hypothyroidism Diagnosed in her 40s and managed by PMD. 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 Surgical History S/P endoscopy multiple esophageal varices banding treatment-- [facility] follows History of laparotomy ---states that she had a laparotomy for cyst in her ovary to help her get and states that appendectomy was performed at the same time. Status post delivery delivery performed in 1977. H/O shoulder surgery Right shoulder surgery-arthroscopy for torn rotator cuff. Rectocele (~2007) Posterior vaginal repair- [facility] Previous back surgery 2014-- low back 2019-- low back S/P cholecystectomy Open procedure-1983 S/P hysterectomy (~1999) LIZZIE,BSO due to PCOS. Performed at [facility]. She had already gone through menopause. Family History Mother Diabetes Hypertension Grandfather Diabetes Maternal and Paternal Heart disease Paternal Grandmother Diabetes Maternal and Paternal Brother Diabetes Heart disease Hypertension Sister Diabetes Heart disease Hypertension Thyroid disease Father Stroke 50 years old Social History Smoking and tobacco/nicotine status: never used tobacco/nicotine Substance/Drug Use: never Vitals/I&O/Wt Last Vital Signs Temp 98.2 F 04/03/24 22:34 Pulse 61 04/03/24 22:34 Resp 13 04/03/24 22:34 BP 117/57 04/03/24 22:34 Pulse Ox 99 04/03/24 22:34 O2 Del Method Room Air 04/03/24 22:05 04/03/24 04/03/24 04/04/24 14:59 22:59 06:59 Intake Total Balance Weight last 48 hrs Weight 78.925 kg Physical Exam 2 Narrative: General: Patient is awake and alert. Pleasant. Head: Normocephalic. Atraumatic. EOM intact. Neck: No JVD. Cardiovascular: RRR. No gallops. No murmurs. Lungs: Clear to auscultation, no use of accessory muscles, no crackles or wheezes. Skin: No jaundice. No rashes. Abdomen: Normal bowel sounds, abdomen soft and nontender. Genito Urinary: Genital exam not performed since complaints not related. Extremities: No cyanosis or clubbing. Musculoskeletal: No swollen or erythematous joints. Neurological: Moves all 4 extremities. No myoclonus. Data 04/03/24 18:53 04/03/24 18:53 A&P Assessment and plan (1) GI bleed: Suspected GI bleed in the setting of known esophageal varices Patient reports intermittent melena Query bleed possibly open 2 weeks ago given onset and constellation of symptoms Start IV PPI treatment No NSAIDs or anticoagulants for now Trend hemoglobin Transfusing 2 packed red blood cells Hold off on ordering oral Lasix, she may need IV Lasix to help with volume control after transfusions Pending transfer to [facility] (2) Iron deficiency anemia: History of iron deficiency on iron infusions Check iron labs Transfusing as noted above (3) Coagulopathy: Coagulopathy with elevated INR Avoid anticoagulants for now Repeat INR in a.m. (4) Cirrhosis: History of liver cirrhosis with esophageal varices Patient reports last EGD about 3 months ago at [facility] She is pending transfer to [facility] (5) Hypothyroidism: Continue home Synthroid Qualifiers: Hypothyroidism type: unspecified Qualified Code(s): E03.9 - Hypothyroidism, unspecified (6) HTN (hypertension): Continue home medications Qualifiers: Hypertension type: essential hypertension Qualified Code(s): I10 - Essential (primary) hypertension (7) Hypokalemia: Potassium replacement ordered (8) Type 2 diabetes mellitus: Continue long-acting insulin at reduced home dose Sliding-scale insulin correction Avoid hypoglycemia Plan Thank you for this consultation. Consult Attestations 2 Medical Necessity Statement: Patient is pending transfer to [facility]. Coding Level of Care Code Acute Code for [facility] Fwd Diagnoses GI bleed K92.2 Iron deficiency anemia D50.9 Coagulopathy D68.9 Cirrhosis K74.60 Hypothyroidism, unspecified type E03.9 Hypothyroidism type: unspecified Essential hypertension I10 Hypertension type: essential hypertension Hypokalemia E87.6 Type 2 diabetes mellitus E11.9
[2024-04-04] VITALS (51 sets, daily range): BP systolic 83–133; BP diastolic 33–79; PULSE 61–74; RESP 11–28; TEMP 36.4–36.6; O2SAT 92–100
[2024-04-04 00:36] LABS: Ferritin 309 ng/mL (15-150); Iron 41 ug/dL (37-145); Percent Saturation 18.9 % (20-50); Total Iron Binding Capacity 216 mcg/dl; Unsaturated Iron Binding 175 ug/dL (112-347)
[2024-04-04] MEDS: potassium chloride ER 20 mEq Tablet 40 MEQ PO (00:42)
[2024-04-04 00:51] LABS: Vitamin B12 1476 pg/mL (232-1245)
[2024-04-04 05:16] LABS: Basophils % 0.5 %; Eosinophils % 1.1 %; Hematocrit 29.3 % (36-47); Lymphocytes # 0.4 10^3/uL (0.8-4.8); Lymphocytes % 9.5 %; Mean Corpuscular HGB Conc 32.4 g/dL (30-55); Mean Corpuscular Hemoglobin 30.7 pg (27-33); Mean Corpuscular Volume 94.8 fl (85-98); Mean Platelet Volume 13.2 fL (7.4-10.4); Monocytes # 0.4 10^3/uL (0.2-0.9); Monocytes % 9.5 %; Neutrophils # 2.99 10^3/uL (1.8-7.7); Neutrophils % 79.1 %; Nucleated Red Blood Cells % 0 %; Platelet Count 75 10^3/cmm (157-399); Red Blood Count 3.09 10^6/uL (3.85-5.65); Red Cell Distribution Width 20.5 % (12.1-15.1); White Blood Count 3.78 10^3/uL (3.29-11.43)
[2024-04-04 05:28] LABS: INR 1.85 (0.8-1.2)
[2024-04-04] MEDS: levothyroxine 50 mcg Tablet PO (05:32)
[2024-04-04 05:41] LABS: Alanine Aminotransferase 38 U/L (0-33); Albumin Level 3.1 g/dL (3.5-5.2); Alkaline Phosphatase 116 U/L (35-105); Aspartate Amino Transferase 50 U/L (0-32); Blood Urea Nitrogen 28 mg/dL (8-23); Calcium 8.3 mg/dL (8.5-10.5); Carbon Dioxide 24 mmol/L (22-29); Chloride 108 mmol/L (98-107); Creatinine Clr Calc Pharmacy 53.5751; Globulin 2.3 g/dL (1.3-4.6); Glucose 98 mg/dL (65-115); Magnesium 2.2 mg/dL (1.7-2.3); Osmolality Calculated 299 mOsm/kg (285-295); Phosphorus 3.1 mg/dL (2.5-4.5); Sodium 142 mmol/L (136-145); Total Bilirubin 3.1 mg/dL (0.15-1.2); Total Protein 5.4 g/dL (6.6-8.7)
[2024-04-04] MEDS: cefTRIAXone 1,000 mg SDV 1000 MG IVP (09:04)
[2024-04-04] MEDS: pantoprazole 40 mg SDV IVP ×2 (09:04→20:50)
--- NOTE | 2024-04-04 09:05 | P.PN_ITS ---
Subjective 2 Subjective: Reviewed history and physical. Patient reports no complaints today. She did feel a little bloated in her abdomen. She had been passing dark stools intermittently up until 1 to 2 days ago. She denies any overnight. She is hungry. Medications: Reviewed: Yes Vitals/I&O/Wt Last Vital Signs Temp 97.6 F 04/04/24 02:11 Pulse 67 04/04/24 08:00 Resp 18 04/04/24 08:00 BP 125/65 04/04/24 08:00 Pulse Ox 99 04/04/24 08:00 O2 Del Method Room Air 04/03/24 23:22 04/03/24 04/04/24 04/04/24 22:59 06:59 14:59 Intake Total 586 / 600 Balance 586 / 600 Weight last 48 hrs Weight 78.925 kg Physical Exam 2 Narrative: General Exam no distress Neck is supple Cardiovascular regular rate and rhythm Lungs clear Abdomen soft Extremities no cyanosis clubbing or edema Data 04/04/24 05:11 04/04/24 05:11 A&P Assessment and plan (1) GI bleed: Suspected GI bleed in the setting of known esophageal varices, gastric antral vascular ectasia Patient reports intermittent melena Continue IV Protonix No NSAIDs or anticoagulants Hemoglobin has going up appropriately with transfusion of 2 units 04/03 Pending transfer to [facility] Secondary to upper GI bleed, ceftriaxone added empirically May have some clear liquids. (2) Iron deficiency anemia: History of iron deficiency Transfusion as noted (3) Coagulopathy: Coagulopathy with elevated INR Avoid anticoagulants for now INR improved but still elevated this morning (4) Cirrhosis: History of liver cirrhosis with esophageal varices Patient reports last EGD about 3 months ago at [facility] She is pending transfer to [facility] (5) Hypothyroidism: Continue home Synthroid Qualifiers: Hypothyroidism type: unspecified Qualified Code(s): E03.9 - Hypothyroidism, unspecified (6) HTN (hypertension): Continue home medications Qualifiers: Hypertension type: essential hypertension Qualified Code(s): I10 - Essential (primary) hypertension (7) Hypokalemia: Supplemented and normal this morning (8) Type 2 diabetes mellitus: Reduce long-acting insulin dose as on just clear liquids Sliding-scale insulin correction Avoid hypoglycemia Plan Thank you for this consultation. Will continue to follow Attestations 2 Medical Necessity Statement*: Needs continued close monitoring secondary to GI bleeding, from presumed gastric or esophageal varices in this patient with known cirrhosis. Diagnoses GI bleed K92.2 Iron deficiency anemia D50.9 Coagulopathy D68.9 Cirrhosis K74.60 Hypothyroidism, unspecified type E03.9 Hypothyroidism type: unspecified Essential hypertension I10 Hypertension type: essential hypertension Hypokalemia E87.6 Type 2 diabetes mellitus E11.9 Time Spent (min) 23
[2024-04-04] MEDS: insulin glargine 100 units/1 mL 15 UNIT SUBCUT (09:18)
--- NOTE | 2024-04-04 09:21 | PC.NURSE ---
Gave status update to [facility] @[id number]
[2024-04-04 12:44] LABS: Glucose Point of Care 110 mg/dL (70-110)
[2024-04-04 12:44] LABS: Glucose Point of Care 105 mg/dL (70-110)
[2024-04-04 15:35] LABS: Hematocrit 30.4 % (36-47)
[2024-04-04 18:02] LABS: Glucose Point of Care 116 mg/dL (70-110)
--- NOTE | 2024-04-04 19:29 | ED_ITS ---
HPI - GI Bleed 2 General: Chief complaint: GI Bleed Stated complaint: abd swelling, unable to urinate, black stool low b Time Seen by Provider: 04/03/24 19:09 History of Present Illness: Patient is still waiting on a bed at [facility] in [place]. She is feeling fine. She is resting well in bed right now. She has been seen by the hospitalist today. No nausea or vomiting. No further rectal bleeding. Related Data Home Medications Medication Instructions Recorded Confirmed carvedilol 6.25 mg tablet 6.25 mg PO BID 02/01/20 04/04/24 atorvastatin 40 mg tablet 40 mg PO DAILY 12/02/21 04/04/24 dapagliflozin propanediol 10 mg 10 mg PO DAILY 12/02/21 04/04/24 tablet (Farxiga) vitamin E (dl, acetate) 180 mg 400 unit PO DAILY 12/02/21 04/04/24 (400 unit) capsule magnesium oxide 400 mg PO BID 06/04/22 04/04/24 potassium chloride 10 mEq 20 meq PO DAILY 01/18/23 04/04/24 tablet,extended release loteprednol etabonate 0.5 % eye 1 drp ophthalmic (eye) ONCE 03/02/23 04/04/24 gel drops semaglutide 0.25 mg or 0.5 mg (2 2 mg SUBCUT .weekly 03/02/23 04/04/24 mg/3 mL) subcutaneous pen injector (Ozempic) insulin degludec 100 unit/mL (3 40 unit SUBCUT DAILY 02/09/24 04/04/24 mL) subcutaneous pen (Tresiba FlexTouch U-100 insulin) omeprazole 40 mg capsule,delayed 40 mg PO BID 04/04/24 04/04/24 release oxybutynin chloride 5 mg 5 mg PO DAILY 04/04/24 04/04/24 tablet,extended release 24 hr Previous Rx's Medication Instructions Recorded furosemide 40 mg tablet See Rx Instructions .Route 08/16/23 .COMPLEX #180 tabs levothyroxine 50 mcg tablet 50 mcg PO DAILY #90 tabs 11/25/23 estradiol 0.01% (0.1 mg/gram) 1 g vaginal .COMPLEX #42.5 grams 01/20/24 vaginal cream (Estrace) Allergies Allergy/AdvReac Type Severity Reaction Status Date / Time Sulfa (Sulfonamide Allergy rash Verified 04/03/24 18:12 Antibiotics) sulfamethoxazole Allergy Unknown Verified 04/03/24 18:12 [From Bactrim] tetracycline Allergy rash Verified 04/03/24 18:12 trimethoprim [From Bactrim] Allergy rash Verified 04/03/24 18:12 influenza virus vaccine AdvReac muscle Verified 04/03/24 18:12 bivalent aches/short of breath simvastatin AdvReac ADR-Cramping Verified 04/03/24 18:12 of the Muscles Bugacyf-GFF-EkC Reductase AdvReac ADR-Cramping Verified 04/03/24 18:12 Inhibitor of the [Gjtgrkj-Wpf-Yyl Reductase Muscles Inhibitor] Review of Systems 2 Narrative: Constitutional symptoms: Negative except as documented in HPI. Skin symptoms: Negative except as documented in HPI. Eye symptoms: Negative except as documented in HPI. ENMT symptoms: Negative except as documented in HPI. Respiratory symptoms: Negative except as documented in HPI. Cardiovascular symptoms: Negative except as documented in HPI. Gastrointestinal symptoms: Negative except as documented in HPI. Genitourinary symptoms: Negative except as documented in HPI. Musculoskeletal symptoms: Negative except as documented in HPI. Neurologic symptoms: Negative except as documented in HPI. Psychiatric symptoms: Negative except as documented in HPI. Endocrine symptoms: Negative except as documented in HPI. PFSH ED 2 PFSH: Medical History Esophageal varices Pancytopenia Liver cirrhosis secondary to DILLARD With portal hypertension History of pulmonary embolism (08/2015) Portal vein thrombosis Chronic kidney disease Lyn Denise following Type 2 diabetes mellitus Iron deficiency anemia Degenerative disc disease Peptic ulcer Hypothyroidism Diagnosed in her 40s and managed by PMD. 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 Surgical History S/P endoscopy multiple esophageal varices banding treatment-- [facility] follows History of laparotomy ---states that she had a laparotomy for cyst in her ovary to help her get and states that appendectomy was performed at the same time. Status post delivery delivery performed in 1977. H/O shoulder surgery Right shoulder surgery-arthroscopy for torn rotator cuff. Rectocele (~2007) Posterior vaginal repair- [facility] Previous back surgery 2014-- low back 2019-- low back S/P cholecystectomy Open procedure-1983 S/P hysterectomy (~2000) LIZZIE,BSO due to PCOS. Performed at [facility]. She had already gone through menopause. Family History Mother Diabetes Hypertension Grandfather Diabetes Maternal and Paternal Heart disease Paternal Grandmother Diabetes Maternal and Paternal Brother Diabetes Heart disease Hypertension Sister Diabetes Heart disease Hypertension Thyroid disease Father Stroke 50 years old Social History Smoking and tobacco/nicotine status: never used tobacco/nicotine Substance/Drug Use: never Physical Exam 2 Narrative: EXAM NARRATIVE: General: Alert, no acute distress. Skin: Warm, dry. Head: Normocephalic, atraumatic. Neck: Supple, trachea midline. Eye: Extraocular movements are intact. Ears, nose, mouth and throat: mucosa moist. Cardiovascular: Regular, Normal peripheral perfusion. Respiratory: Lungs are clear to auscultation, respirations are non-labored, breath sounds are equal, Symmetrical chest wall expansion. Gastrointestinal: Soft, Nontender, Non distended Musculoskeletal: Normal ROM, no deformity. Neurological: Alert and oriented, No focal neurological deficit observed. Psychiatric: Cooperative, appropriate mood & affect. Course 2 Vital Signs: Vital signs: Vital Signs Temperature 97.6 F 04/04/24 02:11 Pulse Rate 62 04/04/24 19:00 Respiratory Rate 25 H 04/04/24 19:00 Blood Pressure 104/46 04/04/24 19:00 Pulse Oximetry 94 04/04/24 19:00 Oxygen Delivery Me thod Room Air 04/04/24 19:00 MDM - GI Bleed Medical Decision Making Patient is stable awaiting a bed. Lab Data 04/04/24 15:26 04/04/24 05:11 Radiology Impressions Abdomen/Pelvis CT 04/03/24 20:12 IMPRESSION: 1. Hepatic cirrhosis with evidence of portal hypertension manifested by splenomegaly, ascites, paraesophageal varices, and calcifications of the portal vein. 2. Suggestion of a few thickened segments of small bowel in the left mid abdomen. Differential diagnosis includes focal enteritis and findings secondary to portal hypertension. COMMENTS: Consistent with the [employer]'s Incidental Findings Committee white paper (J Am Sindy Radiol 2018): Any incidental renal lesion less than 1 cm or classified as too small to characterize, or any incidental cystic renal lesion characterized as simple-appearing, is likely benign. No follow-up imaging is recommended for these lesions per consensus recommendations based on imaging criteria. Laboratory Results WBC 3.78 10^3/uL (3.29-11.43) 04/04/24 05:11 RBC 3.09 10^6/uL (3.85-5.65) L 04/04/24 05:11 Hgb 9.80 g/dL (11.27-16.99) L 04/04/24 15:26 Hct 30.4 % (36-47) L 04/04/24 15:26 MCV 94.8 fl (85-98) D 04/04/24 05:11 MCH 30.7 pg (27-33) 04/04/24 05:11 MCHC 32.4 g/dL (30-55) 04/04/24 05:11 RDW 20.5 % (12.1-15.1) H 04/04/24 05:11 Plt Count 75 10^3/cmm (157-399) L 04/04/24 05:11 MPV 13.2 fL (7.4-10.4) H 04/04/24 05:11 Neut % (Auto) 79.1 % 04/04/24 05:11 Lymph % (Auto) 9.5 % 04/04/24 05:11 [place] % (Auto) 9.5 % 04/04/24 05:11 Eos % (Auto) 1.1 % 04/04/24 05:11 Baso % (Auto) 0.5 % 04/04/24 05:11 Neut # (Auto) 2.99 10^3/uL (1.8-7.7) 04/04/24 05:11 Lymph # (Auto) 0.4 10^3/uL (0.8-4.8) L 04/04/24 05:11 [place] # (Auto) 0.4 10^3/uL (0.2-0.9) 04/04/24 05:11 Eos # (Auto) 0.0 10^3/uL (0.0-0.8) 04/04/24 05:11 Baso # (Auto) 0.0 10^3/uL (0.0-0.1) 04/04/24 05:11 Nucleated RBC % (auto) 0 % 04/04/24 05:11 Nucleated RBCs # 0.0 /100WBC 04/04/24 05:11 PT 22.00 SECONDS (12.1-14.9) H D 04/04/24 05:11 INR 1.85 (0.8-1.2) H 04/04/24 05:11 Sodium 142 mmol/L (136-145) 04/04/24 05:11 Potassium 4.0 mmol/L (3.5-5.1) 04/04/24 05:11 Chloride 108 mmol/L (98-107) H 04/04/24 05:11 Carbon Dioxide 24 mmol/L (22-29) 04/04/24 05:11 Anion Gap 14.0 (5-19) 04/04/24 05:11 BUN 28 mg/dL (8-23) H 04/04/24 05:11 Creatinine 1.0 mg/dL (0.5-0.9) H 04/04/24 05:11 GFR Calculation Not Reportable 04/04/24 05:11 Glucose 98 mg/dL (65-115) 04/04/24 05:11 POC Glucose 116 mg/dL (70-110) H 04/04/24 17:59 Calculated Osmolality 299 mOsm/kg (285-295) H 04/04/24 05:11 Calcium 8.3 mg/dL (8.5-10.5) L 04/04/24 05:11 Phosphorus 3.1 mg/dL (2.5-4.5) 04/04/24 05:11 Magnesium 2.2 mg/dL (1.7-2.3) 04/04/24 05:11 Iron 41 ug/dL (37-145) 04/03/24 18:53 TIBC 216 mcg/dl 04/03/24 18:53 % Saturation 18.9 % (20-50) L 04/03/24 18:53 Unsat Iron Binding 175 ug/dL (112-347) 04/03/24 18:53 Ferritin 309 ng/mL (15-150) H 04/03/24 18:53 Total Bilirubin 3.1 mg/dL (0.15-1.2) H 04/04/24 05:11 AST 50 U/L (0-32) H 04/04/24 05:11 ALT 38 U/L (0-33) H 04/04/24 05:11 Alkaline Phosphatase 116 U/L (35-105) H 04/04/24 05:11 Total Protein 5.4 g/dL (6.6-8.7) L 04/04/24 05:11 Albumin 3.1 g/dL (3.5-5.2) L 04/04/24 05:11 Globulin 2.3 g/dL (1.3-4.6) 04/04/24 05:11 Vitamin B12 1476 pg/mL (232-1245) H 04/03/24 18:53 Blood Type O Negative 04/03/24 18:53 Rho(D) Type Rh negative 04/03/24 18:53 Antibody Screen Negative 04/03/24 18:53 Crossmatch See Detail 04/03/24 18:53 No radiology studies performed this visit Discharge Plan Discharge Patient Disposition: Xfer Short-Term Hosp Clinical Impression: Anemia, Upper GI bleeding, Cirrhosis, Portal hypertension, Portal vein thrombosis, Chronic anticoagulation, Coagulopathy, Thrombocytopenia, Chronic kidney disease, Ascites Condition: Stable Referrals: Marietta Villar NP [Primary Care Provider] - Coding Level of Care Code ED Cut Lace Machine Operator for Iman Vasquez
[2024-04-05] VITALS (22 sets, daily range): BP systolic 96–133; BP diastolic 41–81; PULSE 60–81; RESP 13–22; TEMP 36.7–36.8; O2SAT 91–99
[2024-04-05 01:49] LABS: Basophils % 0.3 %; Eosinophils # 0.1 10^3/uL (0.0-0.8); Eosinophils % 1.5 %; Hematocrit 29.6 % (36-47); Lymphocytes # 0.4 10^3/uL (0.8-4.8); Lymphocytes % 12.4 %; Mean Corpuscular HGB Conc 32.1 g/dL (30-55); Mean Corpuscular Hemoglobin 30.9 pg (27-33); Mean Corpuscular Volume 96.4 fl (85-98); Monocytes # 0.4 10^3/uL (0.2-0.9); Monocytes % 11.2 %; Neutrophils # 2.52 10^3/uL (1.8-7.7); Neutrophils % 74.3 %; Nucleated Red Blood Cells % 0 %; Platelet Count 70 10^3/cmm (157-399); Red Blood Count 3.07 10^6/uL (3.85-5.65); Red Cell Distribution Width 22.1 % (12.1-15.1); White Blood Count 3.39 10^3/uL (3.29-11.43)
[2024-04-05 01:58] LABS: INR 1.21 (0.8-1.2)
[2024-04-05 02:03] LABS: Alanine Aminotransferase 37 U/L (0-33); Albumin Level 3.2 g/dL (3.5-5.2); Alkaline Phosphatase 116 U/L (35-105); Anion Gap 13.9 (5-19); Aspartate Amino Transferase 39 U/L (0-32); Blood Urea Nitrogen 22 mg/dL (8-23); Calcium 8.5 mg/dL (8.5-10.5); Carbon Dioxide 23 mmol/L (22-29); Chloride 107 mmol/L (98-107); Globulin 1.7 g/dL (1.3-4.6); Glucose 87 mg/dL (65-115); Osmolality Calculated 293 mOsm/kg (285-295); Potassium 3.9 mmol/L (3.5-5.1); Sodium 140 mmol/L (136-145); Total Bilirubin 1.1 mg/dL (0.15-1.2); Total Protein 4.9 g/dL (6.6-8.7)
[2024-04-05] MEDS: HYDROcodone-acetaminophen 5-325 mg Tablet 1 TAB PO (02:05)
--- NOTE | 2024-04-05 09:07 | P.PN_ITS ---
Subjective 2 Subjective: 1 bowel movement yesterday. Had a littl e bit of abdominal pain left upper quadrant that is passed. No vomiting. Relates she did start Xarelto from her physician in [place] for portal vein thrombosis 2 weeks ago. Thinks this might be related to bleeding. Medications: Reviewed: Yes Vitals/I&O/Wt Last Vital Signs Temp 97.6 F 04/04/24 02:11 Pulse 63 04/05/24 06:30 Resp 14 04/05/24 06:30 BP 96/50 04/05/24 06:30 Pulse Ox 93 04/05/24 06:30 O2 Del Method Room Air 04/04/24 19:00 Weight last 48 hrs Weight 78.925 kg Physical Exam 2 Narrative: General Exam no distress Neck is supple Cardiovascular regular rate and rhythm Lungs clear Abdomen soft Extremities no cyanosis clubbing or edema Data 04/05/24 01:34 04/05/24 01:34 A&P Assessment and plan (1) GI bleed: Suspected GI bleed in the setting of known esophageal varices, gastric antral vascular ectasia Patient reports intermittent melena Continue IV Protonix No NSAIDs or anticoagulants Hemoglobin has going up appropriately with transfusion of 2 units 04/03 Pending transfer to [facility] Secondary to upper GI bleed, ceftriaxone added empirically. Continue Advance to full liquids Note that she was on Xarelto in the last 2 weeks as a new medication, which could have contributed to her increase in INR, bleeding. This is obviously being held. Hemoglobin stable following her transfusion but still will need EGD and likely addressing esophageal varices and GAVE (2) Iron deficiency anemia: History of iron deficiency Transfusion as noted (3) Coagulopathy: Coagulopathy with elevated INR Avoid anticoagulants for now INR improved (4) Cirrhosis: History of liver cirrhosis with esophageal varices Patient reports last EGD about 3 months ago at [facility] She is pending transfer to [facility] (5) Hypothyroidism: Continue home Synthroid Qualifiers: Hypothyroidism type: unspecified Qualified Code(s): E03.9 - Hypothyroidism, unspecified (6) HTN (hypertension): Continue home medications Qualifiers: Hypertension type: essential hypertension Qualified Code(s): I10 - Essential (primary) hypertension (7) Hypokalemia: Supplemented and normal this morning (8) Type 2 diabetes mellitus: Reduce long-acting insulin dose as on just clear liquids Sliding-scale insulin correction Avoid hypoglycemia Plan Thank you for this consultation. Will continue to follow Attestations 2 Medical Necessity Statement*: Needs continued hospital stay secondary to GI bleeding in this patient with history of esophageal varices and gastric antral vascular ectasia who has portal vein thrombosis and has received transfusion during this admission. Diagnoses GI bleed K92.2 Iron deficiency anemia D50.9 Coagulopathy D68.9 Cirrhosis K74.60 Hypothyroidism, unspecified type E03.9 Hypothyroidism type: unspecified Essential hypertension I10 Hypertension type: essential hypertension Hypokalemia E87.6 Type 2 diabetes mellitus E11.9 Time Spent (min) 24
--- NOTE | 2024-04-05 09:26 | PC.NURSE ---
[facility] called requesting an update on this patient. New set of vitals reported. No pain and 98.0 temp. Pt resting in inpatient bed comfortably on phone.
[2024-04-05] MEDS: pantoprazole 40 mg SDV IVP ×2 (09:57→20:44)
[2024-04-05] MEDS: cefTRIAXone 1,000 mg SDV 1000 MG IVP (09:57)
[2024-04-05] MEDS: atorvastatin 40 mg Tablet PO (09:58)
[2024-04-05] MEDS: levothyroxine 50 mcg Tablet PO (10:02)
[2024-04-05 12:58] LABS: Glucose Point of Care 95 mg/dL (70-110)
[2024-04-05 12:58] LABS: Glucose Point of Care 78 mg/dL (70-110)
[2024-04-05] MEDS: oxyCODONE-APAP 10-325 mg Tablet 1 TAB PO (13:51)
--- NOTE | 2024-04-05 14:27 | PC.NURSE ---
Pt transferred to med surg floor, room 253-1 via wheelchair from ER at 1420. This nurse assumed care of pt at this time.
[2024-04-05 16:34] LABS: Glucose Point of Care 120 mg/dL (70-110)
[2024-04-05 20:49] LABS: Glucose Point of Care 172 mg/dL (70-110)
[2024-04-05] MEDS: insulin lispro 100 unit/1 mL SUBCUT (21:13)
[2024-04-06] VITALS: BP 111/66; PULSE 63; RESP 14; TEMP 36.7; O2SAT 98
[2024-04-06 03:47] VITALS: BP 120/82; PULSE 70; RESP 14; TEMP 36.9; O2SAT 98
[2024-04-06 05:33] LABS: Basophils % 0.8 %; Eosinophils % 1.5 %; Hematocrit 33.6 % (36-47); Lymphocytes # 0.3 10^3/uL (0.8-4.8); Lymphocytes % 11.4 %; Mean Corpuscular HGB Conc 29.2 g/dL (30-55); Mean Corpuscular Hemoglobin 30.7 pg (27-33); Mean Corpuscular Volume 105.3 fl (85-98); Mean Platelet Volume 12.9 fL (7.4-10.4); Monocytes # 0.3 10^3/uL (0.2-0.9); Monocytes % 11.4 %; Neutrophils # 1.96 10^3/uL (1.8-7.7); Neutrophils % 74.5 %; Nucleated Red Blood Cells % 0 %; Platelet Count 74 10^3/cmm (157-399); Red Blood Count 3.19 10^6/uL (3.85-5.65); Red Cell Distribution Width 20.7 % (12.1-15.1); White Blood Count 2.63 10^3/uL (3.29-11.43)
[2024-04-06 05:55] LABS: Anion Gap 9.9 (5-19); Blood Urea Nitrogen 15 mg/dL (8-23); Calcium 8.6 mg/dL (8.5-10.5); Carbon Dioxide 25 mmol/L (22-29); Chloride 107 mmol/L (98-107); Creatinine Clr Calc Pharmacy 54.7279; Glucose 83 mg/dL (65-115); Osmolality Calculated 286 mOsm/kg (285-295); Potassium 3.9 mmol/L (3.5-5.1); Sodium 138 mmol/L (136-145)
[2024-04-06] MEDS: levothyroxine 50 mcg Tablet PO (06:02)
[2024-04-06 06:29] LABS: Glucose Point of Care 94 mg/dL (70-110)
[2024-04-06 07:19] VITALS: RESP 18
[2024-04-06] MEDS: oxyCODONE 5 mg IR Tab/Cap PO (07:19)
--- NOTE | 2024-04-06 07:26 | P.TS_ITS ---
Transfer Summary Providers Date of Admission: 04/05/24 13:30 Date of Discharge/Transfer: 04/06/24 Attending Provider at Admission: Maikel Mathew MD Attending Provider at Transfer: Maikel Mathew MD Primary Care Provider: Marietta Villar NP Transfer Plans: Anticipated date of transfer: 04/06/24 . Diagnoses at Discharge Discharge Diagnosis (1) GI bleed: Status: Acute (2) Iron deficiency anemia: Status: Acute (3) Coagulopathy: Status: Acute (4) Cirrhosis: Status: Acute (5) Hypothyroidism: Status: Acute Qualifiers: Hypothyroidism type: unspecified Qualified Code(s): E03.9 - Hypothyroidism, unspecified Permanent problem details: Diagnosed in her 40s and managed by PMD. 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 (7) Hypokalemia: Status: Acute (8) Type 2 diabetes mellitus: Status: Acute Reason for Visit Reason for Visit abd swelling, unable to urinate, black stool low b Hospital Course Hospital Course Patient is a 73-year-old white female with significant cirrhosis, diabetes, hypertension who presented to the hospital feeling dizzy. She was found to be significantly anemic, and she had had a history of significant black and tarry stools. She had a history of esophageal varices and gastric antral vascular ectasia that had been banded and treated in the past recently. She had recently been put on Xarelto for portal vein thrombosis. Her anticoagulation was held. She was transfused 2 units packed red blood cells. Arrangement for transfer to [place] for potential banding or treatment of gastric antral vascular ectasia and discussion of current path forward for her portal vein thrombosis. The rest of her hospital stay was rather uneventful. Hemoglobin remained relatively stable. Bowel movements decreased. She did not require any further transfusion. INR corrected some. She was accepted for transfer on April 06 in stable condition. Risks and benefits of transfer had been discussed. Abdomen pelvis CT had been done demonstrating hepatic cirrhosis, portal hypertension, portal vein thrombosis with calcification, ascites, paraesophageal varices similar to previous scans. Physical Exam Narrative: General Exam no distress Neck is supple Cardiovascular regular rate and rhythm Lungs clear Abdomen soft but with slight tenderness left side Extremities no cyanosis clubbing or edema TS Data Studies Completed and Pending Completed Studies During Hospitalization Category Date Time Status CT abdomen pelvis w con* [id number] Stat Cat Scan 04/03/24 20:12 Completed Laboratory Last Values WBC 2.63 10^3/uL (3.29-11.43) L 04/06/24 04:58 RBC 3.19 10^6/uL (3.85-5.65) L 04/06/24 04:58 Hgb 9.80 g/dL (11.27-16.99) L 04/06/24 04:58 Hct 33.6 % (36-47) L 04/06/24 04:58 MCV 105.3 fl (85-98) H 04/06/24 04:58 MCH 30.7 pg (27-33) 04/06/24 04:58 MCHC 29.2 g/dL (30-55) L D 04/06/24 04:58 RDW 20.7 % (12.1-15.1) H 04/06/24 04:58 Plt Count 74 10^3/cmm (157-399) L 04/06/24 04:58 MPV 12.9 fL (7.4-10.4) H 04/06/24 04:58 Neut % (Auto) 74.5 % 04/06/24 04:58 Lymph % (Auto) 11.4 % 04/06/24 04:58 [place] % (Auto) 11.4 % 04/06/24 04:58 Eos % (Auto) 1.5 % 04/06/24 04:58 Baso % (Auto) 0.8 % 04/06/24 04:58 Neut # (Auto) 1.96 10^3/uL (1.8-7.7) 04/06/24 04:58 Lymph # (Auto) 0.3 10^3/uL (0.8-4.8) L 04/06/24 04:58 [place] # (Auto) 0.3 10^3/uL (0.2-0.9) 04/06/24 04:58 Eos # (Auto) 0.0 10^3/uL (0.0-0.8) 04/06/24 04:58 Baso # (Auto) 0.0 10^3/uL (0.0-0.1) 04/06/24 04:58 Nucleated RBC % (auto) 0 % 04/06/24 04:58 Nucleated RBCs # 0.0 /100WBC 04/06/24 04:58 PT 15.70 SECONDS (12.1-14.9) H 04/05/24 01:34 INR 1.21 (0.8-1.2) H 04/05/24 01:34 Sodium 138 mmol/L (136-145) 04/06/24 04:58 Potassium 3.9 mmol/L (3.5-5.1) 04/06/24 04:58 Chloride 107 mmol/L (98-107) 04/06/24 04:58 Carbon Dioxide 25 mmol/L (22-29) 04/06/24 04:58 Anion Gap 9.9 (5-19) 04/06/24 04:58 BUN 15 mg/dL (8-23) 04/06/24 04:58 Creatinine 1.0 mg/dL (0.5-0.9) H 04/06/24 04:58 GFR Calculation Not Reportable 04/06/24 04:58 Glucose 83 mg/dL (65-115) 04/06/24 04:58 POC Glucose 94 mg/dL (70-110) 04/06/24 06:12 Calculated Osmolality 286 mOsm/kg (285-295) 04/06/24 04:58 Calcium 8.6 mg/dL (8.5-10.5) 04/06/24 04:58 Phosphorus 3.1 mg/dL (2.5-4.5) 04/04/24 05:11 Magnesium 2.2 mg/dL (1.7-2.3) 04/04/24 05:11 Iron 41 ug/dL (37-145) 04/03/24 18:53 TIBC 216 mcg/dl 04/03/24 18:53 % Saturation 18.9 % (20-50) L 04/03/24 18:53 Unsat Iron Binding 175 ug/dL (112-347) 04/03/24 18:53 Ferritin 309 ng/mL (15-150) H 04/03/24 18:53 Total Bilirubin 1.1 mg/dL (0.15-1.2) 04/05/24 01:34 AST 39 U/L (0-32) H 04/05/24 01:34 ALT 37 U/L (0-33) H 04/05/24 01:34 Alkaline Phosphatase 116 U/L (35-105) H 04/05/24 01:34 Total Protein 4.9 g/dL (6.6-8.7) L 04/05/24 01:34 Albumin 3.2 g/dL (3.5-5.2) L 04/05/24 01:34 Globulin 1.7 g/dL (1.3-4.6) 04/05/24 01:34 Vitamin B12 1476 pg/mL (232-1245) H 04/03/24 18:53 Blood Type O Negative 04/03/24 18:53 Rho(D) Type Rh negative 04/03/24 18:53 Antibody Screen Negative 04/03/24 18:53 Crossmatch See Detail 04/03/24 18:53 Radiology Impressions Abdomen/Pelvis CT 04/03/24 20:12 IMPRESSION: 1. Hepatic cirrhosis with evidence of portal hypertension manifested by splenomegaly, ascites, paraesophageal varices, and calcifications of the portal vein. 2. Suggestion of a few thickened segments of small bowel in the left mid abdomen. Differential diagnosis includes focal enteritis and findings secondary to portal hypertension. COMMENTS: Consistent with the [employer]'s Incidental Findings Committee white paper (J Am Sindy Radiol 2018): Any incidental renal lesion less than 1 cm or classified as too small to characterize, or any incidental cystic renal lesion characterized as simple-appearing, is likely benign. No follow-up imaging is recommended for these lesions per consensus recommendations based on imaging criteria. Recent Clincial Data Last Vital Signs Temp 98.5 F 04/06/24 03:47 Pulse 70 04/06/24 03:47 Resp 18 04/06/24 07:19 BP 120/82 04/06/24 03:47 Pulse Ox 98 04/06/24 03:47 O2 Del Method Room Air 04/06/24 03:47 Vital Signs Temp Pulse Resp BP Pulse Ox O2 Del Method 04/06/24 07:19 18 04/06/24 03:47 98.5 F 70 14 120/82 98 Room Air 04/06/24 00:00 98.1 F 63 14 111/66 98 Room Air 04/05/24 20:00 98.2 F 62 16 131/81 99 Room Air Intake & Output/Weight 04/04/24 04/05/24 04/06/24 04/07/24 06:59 06:59 06:59 06:59 Intake Total 600 / 600 300 / 300 Output Total 0 / 0 Balance 600 / 600 300 / 300 Weight 78.925 kg 82.463 kg Vitals Last Vital Signs Temp 98.5 F 04/06/24 03:47 Pulse 70 04/06/24 03:47 Resp 18 04/06/24 07:19 BP 120/82 04/06/24 03:47 Pulse Ox 98 04/06/24 03:47 O2 Del Method Room Air 04/06/24 03:47 TS Medications Medications Atorvastatin Calcium (Atorvastatin 40 Mg Tablet) 40 mg PO DAILY [facility] Last Admin: 04/05/24 09:58 Dose: 40 mg Ceftriaxone Sodium (Ceftriaxone 1,000 Mg Sdv) 1,000 mg IVP Q24H ALEXANDRA; Protocol Last Admin: 04/05/24 09:57 Dose: 1,000 mg Glucagon (Glucagon 1 Mg/Ml Kit 1 Ml) 1 mg IM ONCE PRN; Protocol PRN Reason: Adult Acute Hypoglycemia Nursing Prot. Dextrose (D5w) 500 mls @ 0 mls/hr IV ONCE PRN; Protocol PRN Reason: Adult Acute Hypoglycemia Prot Dextrose (D10w) 125 mls @ 750 mls/hr IV PRN PRN; Protocol PRN Reason: Adult Acute Hypoglycemia Nursing Protocol Dextrose (D10w) 250 mls @ 1,000 mls/hr IV PRN PRN; Protocol PRN Reason: Adult Acute Hypoglycemia Nursing Protocol Insulin Glargine (Insulin Glargine 100 Units/1 Ml) 15 unit SUBCUT DAILY [facility] Last Admin: 04/05/24 09:59 Dose: Not Given Insulin Human Lispro (Insulin Lispro 100 Unit/1 Ml) 0 unit SUBCUT WM&BEDTIME ALEXANDRA; Protocol Last Admin: 04/06/24 07:18 Dose: Not Given Levothyroxine Sodium (Levothyroxine 50 Mcg Tablet) 50 mcg PO 0600 ALEXANDRA Last Admin: 04/06/24 06:02 Dose: 50 mcg Ondansetron HCl (Ondansetron 2 Mg/Ml Sdv 2 Ml) 4 mg IVP Q8H PRN PRN Reason: vomiting, or N/V if npo Pantoprazole Sodium (Pantoprazole 40 Mg Sdv) 40 mg IVP Q12H [facility] Last Admin: 04/05/24 20:44 Dose: 40 mg Discontinued Medications Hydrocodone Bitart/Acetaminophen (Hydrocodone-Acetaminophen 5-325 Mg Tablet) 1 tab PO ONCE ONE Stop: 04/05/24 02:03 Last Admin: 04/05/24 02:05 Dose: 1 tab Carvedilol (Carvedilol 6.25 Mg Tablet) 6.25 mg PO BID [facility] Last Admin: 04/05/24 10:10 Dose: Not Given Insulin Glargine (Insulin Glargine 100 Units/1 Ml) 32 unit SUBCUT DAILY [facility] Iohexol (Iohexol 350 Mg/Ml 500 Ml Btl (Per Ml)) 0 ml IV ONCE ONE Stop: 04/03/24 20:43 Last Admin: 04/03/24 20:43 Dose: 100 ml Oxycodone HCl (Oxycodone 5 Mg Ir Tab/Cap) 5 mg PO ONCE ONE Stop: 04/06/24 07:14 Last Admin: 04/06/24 07:19 Dose: 5 mg Oxycodone/Acetaminophen (Oxycodone-Apap 10-325 Mg Tablet) 1 tab PO ONCE ONE Stop: 04/05/24 13:40 Last Admin: 04/05/24 13:51 Dose: 1 tab Pantoprazole Sodium (Pantoprazole 40 Mg Sdv) 80 mg IVP ONCE ONE Stop: 04/03/24 19:20 Last Admin: 04/03/24 19:33 Dose: 80 mg Pantoprazole Sodium (Pantoprazole 40 Mg Sdv) 80 mg IVP ONCE ONE Stop: 04/03/24 23:43 Potassium Chloride (Potassium Chloride Er 20 Meq Tablet) 40 meq PO ONCE ONE Stop: 04/03/24 23:42 Last Admin: 04/04/24 00:42 Dose: 40 meq Sodium Chloride (Sodium Chloride 0.9% 100 Ml Bag) 50 ml IV PRN PRN PRN Reason: Blood transfusion prime and flush Stop: 04/04/24 20:47 Last Admin: 04/03/24 21:39 Dose: 50 ml Allergies Sulfa (Sulfonamide Antibiotics) Allergy (Verified 04/03/24 18:12) rash sulfamethoxazole [From Bactrim] Allergy (Verified 04/03/24 18:12) Unknown tetracycline Allergy (Verified 04/03/24 18:12) rash trimethoprim [From Bactrim] Allergy (Verified 04/03/24 18:12) rash influenza virus vaccine bivalent Adverse Reaction (Verified 04/03/24 18:12) muscle aches/short of breath simvastatin Adverse Reaction (Verified 04/03/24 18:12) ADR-Cramping of the Muscles Xxdrpfq-PHV-LuU Reductase Inhibitor [Uqmhqpn-Oit-Jbx Reductase Inhibitor] Adverse Reaction (Verified 04/03/24 18:12) ADR-Cramping of the Muscles Home Medications carvedilol 6.25 mg tablet 6.25 mg PO BID 02/01/20 [History Confirmed 04/04/24] atorvastatin 40 mg tablet 40 mg PO DAILY 12/02/21 [History Confirmed 04/04/24] dapagliflozin propanediol 10 mg tablet (Farxiga) 10 mg PO DAILY 12/02/21 [History Confirmed 04/04/24] vitamin E (dl, acetate) 180 mg (400 unit) capsule 400 unit PO DAILY 12/02/21 [History Confirmed 04/04/24] magnesium oxide 400 mg PO BID 06/04/22 [History Confirmed 04/04/24] potassium chloride 10 mEq tablet,extended release 20 meq PO DAILY 01/18/23 [History Confirmed 04/04/24] loteprednol etabonate 0.5 % eye gel drops 1 drp ophthalmic (eye) ONCE 03/02/23 [History Confirmed 04/04/24] semaglutide 0.25 mg or 0.5 mg (2 mg/3 mL) subcutaneous pen injector (Ozempic) 2 mg SUBCUT .weekly 03/02/23 [History Confirmed 04/04/24] furosemide 40 mg tablet See Rx Instructions .Route .COMPLEX #180 tabs 08/16/23 [Rx Confirmed 04/04/24] levothyroxine 50 mcg tablet 50 mcg PO DAILY #90 tabs 11/25/23 [Rx Confirmed 04/04/24] estradiol 0.01% (0.1 mg/gram) vaginal cream (Estrace) 1 g vaginal .COMPLEX #42.5 grams 01/20/24 [Rx Confirmed 04/04/24] insulin degludec 100 unit/mL (3 mL) subcutaneous pen (Tresiba FlexTouch U-100 insulin) 40 unit SUBCUT DAILY 02/09/24 [History Confirmed 04/04/24] omeprazole 40 mg capsule,delayed release 40 mg PO BID 04/04/24 [History Confirmed 04/04/24] oxybutynin chloride 5 mg tablet,extended release 24 hr 5 mg PO DAILY 04/04/24 [History Confirmed 04/04/24] Discharge Plan Discharge Patient Disposition: Xfer SNF Condition: Stable Prescriptions: No Action Tresiba FlexTouch U-100 100 unit/mL (3 mL) insulin pen 40 unit SUBCUT DAILY atorvastatin 40 mg tablet 40 mg PO DAILY Farxiga 10 mg tablet 10 mg PO DAILY vitamin E (dl, acetate) 180 mg (400 unit) capsule 400 unit PO DAILY magnesium oxide 400 mg magnesium capsule 400 mg PO BID carvedilol 6.25 mg tablet 6.25 mg PO BID Rx Instructions: must administer with a meal/food Ozempic 0.25 mg or 0.5 mg (2 mg/3 mL) pen injector 2 mg SUBCUT .weekly potassium chloride 10 mEq tablet extended release 20 meq PO DAILY Rx Instructions: Take with lasix loteprednol etabonate 0.5 % drops,gel 1 drp ophthalmic (eye) ONCE estradiol [Estrace] 0.01 % (0.1 mg/gram) cream 1 g vaginal .COMPLEX Qty: 42.5 3RF Rx Instructions: insert 1 gram at hs for 7 nights then twice weekly-- space out doses furosemide 40 mg tablet See Rx Instructions .ROUTE .COMPLEX Qty: 180 1RF Dose Instruction: TAKE 1 TABLET BY MOUTH TWICE DAILY AT 8 AM AND AT 3 PM Rx Instructions: TAKE 1 TABLET BY MOUTH TWICE DAILY AT 8 AM AND AT 3 PM levothyroxine 50 mcg tablet 50 mcg PO DAILY Qty: 90 1RF omeprazole 40 mg capsule,delayed release(DR/EC) 40 mg PO BID oxybutynin chloride 5 mg tablet extended release 24hr 5 mg PO DAILY Rx Instructions: TAKE 1 TABLET BY MOUTH DAILY Discharge Orders: Transfer Out of Facility (Order); Ordered 04/06/24 Ordered By: Maikel Mathew Referrals: Marietta Villar NP [Primary Care Provider] - Transfer Attestations Time Spent in Transfer Care: greater than 30 min Quality Metrics Clinical Quality Measures [ No reported AMI, CVA or VTE this stay] Coding Level of Care Code 54194 Total time (in minutes) for Discharge: 35 Diagnoses GI bleed K92.2 Iron deficiency anemia D50.9 Coagulopathy D68.9 Cirrhosis K74.60 Hypothyroidism, unspecified type E03.9 Hypothyroidism type: unspecified Essential hypertension I10 Hypertension type: essential hypertension Hypokalemia E87.6 Type 2 diabetes mellitus E11.9
[2024-04-06 07:28] VITALS: BP 107/61; PULSE 84; RESP 16; TEMP 36.5; O2SAT 100
[2024-04-06 08:26] VITALS: BP 127/82; PULSE 76; O2SAT 98
== END 2024-04-06 08:06 | disposition short-term general hospital (02) | DRG 377 ==
LOC: ER 04-04 05:18 → MEDSURG 04-05 13:31
PROVIDERS: Emergency Medicine; Internal Medicine; Admitting Provider Internal Medicine; Emergency Provider Emergency Medicine; PCP Nurse Practitioner Family; Visit Provider Internal Medicine
DX: K31.811 Angiodysplasia of stomach and duodenum with bleeding (principal); I81 Portal vein thrombosis; R18.8 Other ascites; D68.32 Hemorrhagic disorder due to extrinsic circulating anticoagulants; K74.69 Other cirrhosis of liver; K75.81 Nonalcoholic steatohepatitis (NASH); I85.10 Secondary esophageal varices without bleeding; I10 Essential (primary) hypertension; E78.5 Hyperlipidemia, unspecified; E03.9 Hypothyroidism, unspecified; E11.9 Type 2 diabetes mellitus without complications; D50.9 Iron deficiency anemia, unspecified; I27.20 Pulmonary hypertension, unspecified; D69.59 Other secondary thrombocytopenia; T45.515A Adverse effect of anticoagulants, initial encounter; Z79.01 Long term (current) use of anticoagulants; Z79.85 Long-term (current) use of injectable non-insulin antidiabetic drugs; Z79.4 Long term (current) use of insulin; Z87.11 Personal history of peptic ulcer disease; Z86.711 Personal history of pulmonary embolism; Z90.49 Acquired absence of other specified parts of digestive tract; Z82.49 Family history of ischemic heart disease and other diseases of the circulatory system; Z83.3 Family history of diabetes mellitus
CPT/HCPCS: 36415; 36416; 36430; 74177; 80048; 80053; 82607; 82728; 82962; 83540; 83550; 83735; 84100; 85014; 85018; 85025; 85610; 86850; 86900; 86920; 93005; 96372; 96374; 99285; J0696; J1815; J2470; P9016; P9058

== ENCOUNTER 2024-05-30 10:00 | Oncology outpatient (recurring) (ONCR) | payer MEDICARE, OTHER, SELFPAY ==
[2024-05-30 10:55] LABS: Basophils % 0.6 %; Eosinophils % 1.2 %; Hematocrit 35.3 % (36-47); Lymphocytes # 0.4 10^3/uL (0.8-4.8); Lymphocytes % 11.5 %; Mean Corpuscular HGB Conc 32.3 g/dL (30-55); Mean Corpuscular Hemoglobin 29.2 pg (27-33); Mean Corpuscular Volume 90.5 fl (85-98); Mean Platelet Volume 12.6 fL (7.4-10.4); Monocytes # 0.3 10^3/uL (0.2-0.9); Neutrophils # 2.52 10^3/uL (1.8-7.7); Neutrophils % 76.1 %; Nucleated Red Blood Cells % 0 %; Platelet Count 65 10^3/cmm (157-399); Red Cell Distribution Width 15.9 % (12.1-15.1); White Blood Count 3.31 10^3/uL (3.29-11.43)
[2024-05-30 11:09] LABS: Alanine Aminotransferase 126 U/L (0-33); Albumin Level 3.3 g/dL (3.5-5.2); Alkaline Phosphatase 309 U/L (35-105); Aspartate Amino Transferase 111 U/L (0-32); Blood Urea Nitrogen 15 mg/dL (8-23); Calcium 9.5 mg/dL (8.5-10.5); Carbon Dioxide 22 mmol/L (22-29); Chloride 108 mmol/L (98-107); Ferritin 224 ng/mL (15-150); Globulin 2.8 g/dL (1.3-4.6); Glucose 115 mg/dL (65-115); Iron 56 ug/dL (37-145); Osmolality Calculated 292 mOsm/kg (285-295); Percent Saturation 27.7 % (20-50); Sodium 140 mmol/L (136-145); Total Bilirubin 0.9 mg/dL (0.15-1.2); Total Iron Binding Capacity 202 mcg/dl; Total Protein 6.1 g/dL (6.6-8.7); Unsaturated Iron Binding 146 ug/dL (112-347)
[2024-05-30 11:10] LABS: Erythrocyte Sedimentation Rate 4 mm/hr (0-15)
[2024-05-30 11:13] LABS: Anion Gap 14.1 (5-19); Potassium 4.1 mmol/L (3.5-5.1)
[2024-05-30 11:35] LABS: Folate Level 18.6 ng/mL (4.8-37.3)
== END 2024-06-16 23:59 | disposition home or self-care (01) ==
PROVIDERS: Nurse Practitioner; PCP Nurse Practitioner Family; Visit Provider Internal Medicine Medical Oncology
DX: D50.9 Iron deficiency anemia, unspecified (principal); Z79.899 Other long term (current) drug therapy; K27.9 Peptic ulcer, site unspecified, unspecified as acute or chronic, without hemorrhage or perforation
CPT/HCPCS: 36415; 80053; 82728; 82746; 83540; 83550; 85025; 85651

== ENCOUNTER 2024-05-30 10:39 | Outpatient (CLI) | payer MEDICARE, OTHER, SELFPAY ==
--- NOTE | 2024-05-30 10:45 | CT_ITS ---
WS: [id number] CT abdomen pelvis w con* [id number] REASON FOR EXAM: HEPATIC CIRRHOSIS, S/P TIPS IV CONTRAST ADMINISTERED: 100 mL of Omnipaque 350. TOTAL EXAM DLP: 442.[address] scans at [facility] use at least one of these dose optimization techniques: automated exposure control; mA and/or kV adjustment per patient size (includes targeted exams where dose is matched to clinical indication); or iterative reconstruction. FINDINGS: Comparison examination 04/03/2024. In comparison to the previous examination the previously demonstrated ascites has resolved. Since the previous examination there has been hepatic stent placement extending from the vena cava, from a posterior right hepatic vein, to the main portal vein via the right portal vein. Due to the tightness of the mesh in the stent it is difficult to tell if there is patency and flow however contrast can clearly be seen entering the stent and exiting the stent and there is less robust filling of the portal vein than on the previous examination. These are indirect signs of portosystemic shunting. The fundal lung gastric varices are again identified and relatively unchanged. The splenomegaly is unchanged. No significant dilatation of the splenic vein. Prominence of the superior mesenteric vein unchanged compared to the previous study. The previously described bowel wall edema is no longer identifiable. The remainder of the abdomen and pelvis are unchanged compared to the previous study. CT/CT abdomen pelvis w con* [id number] IMPRESSION: Resolution of ascites. Portosystemic hepatic stent placed as above. Indirect evidence of patency howev er ultrasound should be obtained to confirm patency. Small varices unchanged as above. Resolution of bowel wall edema. No other interval change or new finding.
[2024-05-30] MEDS: iohexol 350 mg/mL 500 mL Btl (per mL) PO (10:51)
[2024-05-30] MEDS: iohexol 350 mg/mL 500 mL Btl (per mL) IV (11:57)
== END 2024-05-30 10:40 | disposition home or self-care (01) ==
PROVIDERS: PCP Nurse Practitioner Family; Visit Provider Nurse Practitioner Adult Health
DX: K74.60 Unspecified cirrhosis of liver (principal); Z95.828 Presence of other vascular implants and grafts; R93.2 Abnormal findings on diagnostic imaging of liver and biliary tract; R16.1 Splenomegaly, not elsewhere classified; I86.4 Gastric varices; R93.89 Abnormal findings on diagnostic imaging of other specified body structures
CPT/HCPCS: 74177

== ENCOUNTER 2024-07-10 09:00 | Outpatient (CLI) | payer MEDICARE, OTHER, SELFPAY ==
[2024-07-10 10:26] LABS: Thyroid Stimulating Hormone 4.86 uIU/mL (0.27-4.20)
== END 2024-07-10 09:01 | disposition home or self-care (01) ==
LOC: LAB 09:02
PROVIDERS: PCP Nurse Practitioner Family; Visit Provider Internal Medicine
DX: E03.9 Hypothyroidism, unspecified (principal)
CPT/HCPCS: 36415; 84439; 84443

== ENCOUNTER 2024-07-31 08:10 | Oncology outpatient (recurring) (ONCR) | payer MEDICARE, OTHER, SELFPAY ==
--- NOTE | 2024-07-31 09:32 | US_ITS ---
WS: [id number] RIGHT UPPER QUADRANT ULTRASOUND HISTORY: CIRRHOSIS NONALCOHOLIC/S/P TIPS COMPARISON: CT 05/30/2024 Liver: 10.9 cm in length. Small liver with marked coarse echotexture throughout the liver. Heterogeneous liver with no mass identified. No intrahepatic duct dilatation. TIPS procedure appears patent. Good flow extending from the RIGHT hepatic vein to the main portal vein. Portal Vein: Post TIPS normal hepatopetal flow in the main portal vein. Very turbulent flow within the hepatic vein. No occlusion. Gallbladder: Cholecystectomy. CBD: 0.3 cm Pancreas: Not visualized. Right kidney: 10.6 cm in length. Normal size kidney with increased echogenicity. No mass identified. Aorta and IVC: Atherosclerosis. No aneurysm. No ascites. US/US liver [id number] IMPRESSION: 1. Small liver with diffuse coarse echotexture, most consistent with cirrhosis . 2. Limited evaluation of the TIPS procedure. Normal hepatopetal flow in the po rtal vein. Doppler evaluation of the hepatic vein is limited. 3. Cholecystectomy.
[2024-07-31 11:08] LABS: Alanine Aminotransferase 46 U/L (0-33); Albumin Level 3.4 g/dL (3.5-5.2); Alkaline Phosphatase 182 U/L (35-105); Aspartate Amino Transferase 55 U/L (0-32); Blood Urea Nitrogen 27 mg/dL (8-23); Calcium 9.3 mg/dL (8.5-10.5); Carbon Dioxide 18 mmol/L (22-29); Chloride 107 mmol/L (98-107); Creatinine Clr Calc Pharmacy 58.8712; Globulin 3.4 g/dL (1.3-4.6); Glucose 169 mg/dL (65-115); Osmolality Calculated 293 mOsm/kg (285-295); Sodium 137 mmol/L (136-145); Total Bilirubin 1.2 mg/dL (0.15-1.2); Total Protein 6.8 g/dL (6.6-8.7)
[2024-07-31 11:10] LABS: Anion Gap 16.2 (5-19); Potassium 4.2 mmol/L (3.5-5.1)
[2024-07-31 11:55] LABS: Ferritin 264 ng/mL (15-150); Iron 71 ug/dL (37-145); Percent Saturation 27.9 % (20-50); Total Iron Binding Capacity 254 mcg/dl; Unsaturated Iron Binding 183 ug/dL (112-347)
[2024-07-31 12:41] LABS: Eosinophils # 0.1 10^3/uL (0.0-0.8); Hematocrit 37.7 % (36-47); Lymphocytes # 0.6 10^3/uL (0.8-4.8); Lymphocytes % 15.3 %; Mean Corpuscular HGB Conc 34.5 g/dL (30-55); Mean Corpuscular Hemoglobin 30.4 pg (27-33); Mean Corpuscular Volume 88.1 fl (85-98); Mean Platelet Volume 12.9 fL (7.4-10.4); Monocytes # 0.5 10^3/uL (0.2-0.9); Monocytes % 11.3 %; Neutrophils # 2.79 10^3/uL (1.8-7.7); Neutrophils % 68.7 %; Nucleated Red Blood Cells % 0 %; Platelet Count 69 10^3/cmm (157-399); Red Blood Count 4.28 10^6/uL (3.85-5.65); Red Cell Distribution Width 15.4 % (12.1-15.1); White Blood Count 4.06 10^3/uL (3.29-11.43)
== END 2024-08-16 23:59 | disposition home or self-care (01) ==
PROVIDERS: Internal Medicine; PCP Nurse Practitioner Family; Visit Provider Radiology Diagnostic Radiology
DX: D50.9 Iron deficiency anemia, unspecified (principal); K27.9 Peptic ulcer, site unspecified, unspecified as acute or chronic, without hemorrhage or perforation; K74.60 Unspecified cirrhosis of liver; K76.6 Portal hypertension; Z86.718 Personal history of other venous thrombosis and embolism; Z79.899 Other long term (current) drug therapy; Z96.89 Presence of other specified functional implants
CPT/HCPCS: 36415; 76705; 80053; 82728; 83540; 83550; 85025; 99213

== ENCOUNTER 2024-10-30 12:48 | Oncology outpatient (recurring) (ONCR) | payer MEDICARE, OTHER, SELFPAY ==
[2024-10-30 13:33] LABS: Hematocrit 34.5 % (36-47); Hemoglobin 12.20 g/dL (11.27-16.99); Mean Corpuscular HGB Conc 35.4 g/dL (30-55); Mean Corpuscular Hemoglobin 32.9 pg (27-33); Mean Corpuscular Volume 93.0 fl (85-98); Nucleated Red Blood Cells % 0 %; Platelet Count 117 10^3/cmm (157-399); Red Blood Count 3.71 10^6/uL (3.85-5.65); White Blood Count 5.24 10^3/uL (3.29-11.43)
[2024-10-30 13:51] LABS: Alanine Aminotransferase 68 U/L (0-33); Albumin Level 3.4 g/dL (3.5-5.2); Alkaline Phosphatase 167 U/L (35-105); Anion Gap 14.4 (5-19); Aspartate Amino Transferase 62 U/L (0-32); Blood Urea Nitrogen 30 mg/dL (8-23); Calcium 9.0 mg/dL (8.5-10.5); Carbon Dioxide 24 mmol/L (22-29); Chloride 102 mmol/L (98-107); Creatinine Clr Calc Pharmacy 40.2782; Ferritin 180 ng/mL (15-150); Globulin 3.1 g/dL (1.3-4.6); Glucose 89 mg/dL (65-115); Iron 63 ug/dL (37-145); Osmolality Calculated 288 mOsm/kg (285-295); Potassium 4.4 mmol/L (3.5-5.1); Sodium 136 mmol/L (136-145); Total Iron Binding Capacity 261 mcg/dl; Total Protein 6.5 g/dL (6.6-8.7); Unsaturated Iron Binding 198 ug/dL (112-347)
== END 2024-11-16 23:59 | disposition home or self-care (01) ==
PROVIDERS: PCP Nurse Practitioner Family; Visit Provider Internal Medicine Medical Oncology
DX: D50.9 Iron deficiency anemia, unspecified (principal); K27.9 Peptic ulcer, site unspecified, unspecified as acute or chronic, without hemorrhage or perforation; K74.60 Unspecified cirrhosis of liver; D69.6 Thrombocytopenia, unspecified; Z79.899 Other long term (current) drug therapy
CPT/HCPCS: 36415; 80053; 82728; 83540; 83550; 85025; 99214

== ENCOUNTER 2024-12-12 12:18 | Outpatient (CLI) | payer MEDICARE, OTHER, SELFPAY ==
--- NOTE | 2024-12-12 12:25 | CT_ITS ---
WS: [id number] CT ABDOMEN AND PELVIS WITH CONTRAST HISTORY: HEPATIC ENCEPHALOPATHY/HX OF SPLENIC VEIN THROMBOSIS, cirrhosis, TIPS procedure. TECHNIQUE: Imaging performed of the abdomen and pelvis with IV contrast. Single phase imaging of the abdomen. Coronal and sagittal reformats are submitted. All CT scans at [facility] use at least one of these dose optimization techniques: automated exposure control; mA and/or kV adjustment per patient size (includes targeted exams where dose is matched to clinical indication); or iterative reconstruction. IV CONTRAST: Omnipaque 350; 100 mL IV. Oral contrast: No DLP: 436.22 mGy.cm COMPARISON: 05/30/2024 Lower thorax: Lung bases are clear. Heart is normal size. Small hiatal hernia. Liver/biliary system: Liver is normal size. Cirrhotic configuration. TIPS procedure is present. As visualized the stent appears patent and there is contrast along the stent path. Gallbladder: Prior cholecystectomy. Pancreas: Normal size pancreas. Hypodense nodule in the pancreatic tail measures 4.4 mm which does appear to be new. No pancreatic duct dilatation. Spleen: Normal size spleen. Spleen is slightly decreased in length since the prior study. Splenic varices are noted. Spleen measures 10.9 cm in length. Adrenal glands: Normal. Right kidney: Mild diffuse cortical thinning. No obstruction. No mass. Left kidney: Mild diffuse cortical thinning with no obstruction. Subtle cortical hypodensity in superior pole measures 8 mm is unchanged since 04/03/2024. Aorta: Mild atherosclerosis with no aneurysm. Lymphadenopathy: None. Free fluid: None. GI tract: Well-distended stomach with food products. Mild constipation. Prior appendectomy. Mild sigmoid diverticulosis. Abdominal wall: Unremarkable abdominal wall. No hernia. Pelvis: No free fluid or adenopathy within the pelvis. Nondistended urinary bladder. Bones: Prior posterior lumbar fusion from L3 L5. Interbody disc spacers at L3-4 and L4-5. CT/CT abdomen pelvis w con* [id number] IMPRESSION: 1. Status post TIPS procedure which appears patent. 2. Cirrhotic configuration of the liver. 3. No ascites. 4. Slight decrease in size of the overall length of the spleen now measuring 1 0.9 cm in length. 5. New 4.4 mm low-attenuation nodule pancreatic tail. Recommend follow-up CT i n 3 months, with and without contrast evaluation.
[2024-12-12] MEDS: iohexol 350 mg/mL 500 mL Btl (per mL) IV (12:54)
== END 2024-12-12 12:19 | disposition home or self-care (01) ==
LOC: RAD 12:19
PROVIDERS: PCP Nurse Practitioner Family; Visit Provider Radiology Diagnostic Radiology
DX: K76.82 Hepatic encephalopathy (principal); I81 Portal vein thrombosis; Z95.828 Presence of other vascular implants and grafts; K74.60 Unspecified cirrhosis of liver; R16.1 Splenomegaly, not elsewhere classified; K86.9 Disease of pancreas, unspecified
CPT/HCPCS: 74177

== ENCOUNTER 2025-03-05 10:12 | Oncology outpatient (recurring) (ONCR) | payer MEDICARE, OTHER, SELFPAY ==
[2025-03-05 10:41] LABS: Hematocrit 35.3 % (36-47); Hemoglobin 12.10 g/dL (11.27-16.99); Mean Corpuscular HGB Conc 34.3 g/dL (30-55); Mean Corpuscular Hemoglobin 33.0 pg (27-33); Mean Corpuscular Volume 96.2 fl (85-98); Nucleated Red Blood Cells % 0 %; Platelet Count 98 10^3/cmm (157-399); Red Blood Count 3.67 10^6/uL (3.85-5.65); White Blood Count 5.75 10^3/uL (3.29-11.43)
[2025-03-05 11:00] LABS: Alanine Aminotransferase 79 U/L (0-33); Albumin Level 3.5 g/dL (3.5-5.2); Alkaline Phosphatase 169 U/L (35-105); Anion Gap 10.0 (5-19); Aspartate Amino Transferase 79 U/L (0-32); Blood Urea Nitrogen 32 mg/dL (8-23); Calcium 8.8 mg/dL (8.5-10.5); Carbon Dioxide 28 mmol/L (22-29); Chloride 106 mmol/L (98-107); Ferritin 190 ng/mL (15-150); Globulin 3.0 g/dL (1.3-4.6); Glucose 257 mg/dL (65-115); Iron 96 ug/dL (37-145); Osmolality Calculated 306 mOsm/kg (285-295); Potassium 4.0 mmol/L (3.5-5.1); Sodium 140 mmol/L (136-145); Total Iron Binding Capacity 263 mcg/dl; Total Protein 6.5 g/dL (6.6-8.7); Unsaturated Iron Binding 167 ug/dL (112-347)
== END 2025-03-18 23:59 | disposition home or self-care (01) ==
PROVIDERS: Nurse Practitioner; PCP Nurse Practitioner Family; Visit Provider Internal Medicine Medical Oncology
DX: D50.9 Iron deficiency anemia, unspecified (principal); K74.60 Unspecified cirrhosis of liver; D69.6 Thrombocytopenia, unspecified
CPT/HCPCS: 36415; 80053; 82728; 83540; 83550; 85025; 99213

== ENCOUNTER 2025-04-06 07:54 | Outpatient (CLI) | payer MEDICARE, OTHER, SELFPAY ==
--- NOTE | 2025-04-06 08:01 | US_ITS ---
WS: [email or web address] Right upper quadrant ultrasound, 04/06/2025 Clinical Data: TIPS/PORTAL VEIN THROMBOSIS Comparison: Gallbladder and liver ultrasound, 07/31/2024 Findings: The gallbladder is absent. The common bile duct is 0.3 cm and there are no intrahepatic ductal abnormalities. Liver shows no cysts, masses or dilated intrahepatic ducts. The portal vein shows hepatopetal pedal flow and measures 0.7 cm. The right portal vein is visualized and there is a splint. The right portal vein does show flow. The right hepatic vein is visualized. The liver parenchyma shows heterogenicity. The liver measures 12.4 cm. The pancreas is not obscured by overlying bowel gas and no cyst, pseudocyst, or evidence of pancreatitis is noted. Right kidney measures 9.8 cm and no cyst, masses or hydronephrosis can be seen. The aorta and inferior vena cava show no vascular abnormalities. US/US liver [id number] Impression: 1. Absent gallbladder. 2. Hepatopetal flow of the liver with TIPS stent patent. 3. Heterogeneous echotexture of the liver.
== END 2025-04-06 07:55 | disposition home or self-care (01) ==
LOC: RAD 07:55
PROVIDERS: PCP Nurse Practitioner Family; Visit Provider Radiology Diagnostic Radiology
DX: Z95.828 Presence of other vascular implants and grafts (principal); I81 Portal vein thrombosis; K76.82 Hepatic encephalopathy; K74.60 Unspecified cirrhosis of liver; Z90.49 Acquired absence of other specified parts of digestive tract; Z98.890 Other specified postprocedural states; K76.89 Other specified diseases of liver
CPT/HCPCS: 76705